=== PATIENT | female | born 1955 | race African-American/Black ===

== ENCOUNTER 2018-10-30 11:41 | Inpatient (IN) | payer OTHER ==
[2018-10-30 11:47] VITALS: BMI 34.9
--- NOTE | 2018-10-30 14:37 | HP ---
CIWA Score Nausea/Vomitin-No Nausea/No Vomiting Muscle Tremors: 3 Anxiety: 4-Mod. Anxious/Guarded Agitation: 3 Paroxysmal Sweats: No Perspiration Orientation: 1-Uncertain about Date Tacttile Disturbances: 0-None Auditory Disturbances: 1-Very Mild Visual Disturbances: 0-None Headache: 0-None Present CIWA-Ar Total Score: 12 - Admission Criteria [facility]ASAS Guidelines: Admission for Medically Managed Detox: Requires at least one of the followin. CIWA greater than 12 2. Seizures within the past 24 hours 3. Delirium tremens within the past 24 hours 4. Hallucinations within the past 24 hours 5. Acute intervention needed for co occurring medical disorder 6. Acute intervention needed for co occurring psychiatric disorder 7. Severe withdrawal that cannot be handled at a lower level of care (continued vomiting, continued diarrhea, abnormal vital signs) requiring intravenous medication and/or fluids 8. Admission ROS [facility] Chief Complaint: ETOH WITHDRAWAL SX AND COCAINE DEPENDENCE. Allergies/Adverse Reactions: Allergies Allergy/AdvReac Type Severity Reaction Status Date / Time No Known Allergies Allergy Verified 10/30/18 13:56 History of Present Illness: PATIENT PRESENTS FIRST TIME ADMISSION FOR ETOH WITHDRAWAL SX AND COCAINE DEPENDENCE. PATIENT STARTED DRINKING AT AGE 21 AND DRINKS 1 PINT OF VODKA AND 1- 2 BEERS DAILY. LAST DRINK WAS EARLY TUESDAY MORNING. PATIENT DENIES H/O SEIZURES , BLACKOUTS AND FALLS. PATIENT ALSO SNIFFS COCAINE, 30 DOLLARS A DAY, LAST TIME SHE USED COCAINE WAS 10/28/17. PATIENT'S PMH INCLUDES ASTHMA, BIPOLAR DISORDER AND ANXIETY. UDS +COCAINE AND BZO. ISTOP VERIFIED BELOW. PATIENT ALSO REQUEST TO DETOX OFF XANAX BUT REFUSED TO HAVE PROVIDER CONTACT DOCTOR FOR LETTER. PATIENT STATES SHE WILL FOLLOW UP WITH PCP UPON D/C TO DISCUSS ALTERNATIVE FOR ANXIETY. Others' Prescriptions Patient Name: Ruth Del Real Date: 1955 Address: [address] [place] [address] Sex: Female Rx Written Rx Dispensed Drug Quantity Days Supply Prescriber Name 09/27/2018 10/04/2018 alprazolam 0.25 mg tablet 60 30 Tal Curtis 09/13/2018 09/19/2018 alprazolam 0.25 mg tablet 28 14 Tal Curtis 08/10/2018 08/10/2018 alprazolam 0.25 mg tablet 60 30 KirstenTal schreiber 06/29/2018 06/30/2018 alprazolam 0.5 mg tablet 60 30 Kirsten, Tal 04/19/2018 05/11/2018 alprazolam 0.25 mg tablet 60 30 Kirsten, Tal 04/13/2018 04/14/2018 alprazolam 0.25 mg tablet 60 30 Kirsten, Tal 02/22/2018 03/16/2018 alprazolam 0.25 mg tablet 60 30 Kirsten, Tal 02/03/2018 02/03/2018 alprazolam 0.25 mg tablet 60 30 Dereje George MD 12/30/2017 01/03/2018 alprazolam 0.25 mg tablet 60 30 Kirsten Tal 11/24/2017 12/01/2017 alprazolam 0.25 mg tablet 60 30 KirstenTal MD 11/11/2017 11/16/2017 alprazolam 0.25 mg tablet 10 5 Dereje George MD Exam Limitations: No Limitations - Ebola screening Have you traveled outside of the country in the last 21 days: No Have you had contact with anyone from an Ebola affected area: No Have you been sick,other than usual withdrawal symptoms: No Do you have a fever: No - Review of Systems Constitutional: Chills, Night Sweats, Changes in sleep EENT: reports: No Symptoms Reported Respiratory: reports: Shortness of Breath (MILD SOB DUE TO ASTHMA) Cardiac: reports: No Symptoms Reported GI: reports: Poor Appetite, Poor Fluid Intake, Abdominal cramping : reports: No Symptoms Reported Musculoskeletal: reports: No Symptoms Reported Integumentary: reports: Sweating Neuro: reports: Tremors Endocrine: reports: No Symptoms Reported Hematology: reports: No Symptoms Reported Psychiatric: reports: Anxious (UNSURE OF DATE, KNOWS PLACE AND NAME.), Depressed Patient History - Patient Medical History Hx Anemia: No Hx Asthma: Yes Hx Chronic Obstructive Pulmonary Disease (COPD): No Hx Cancer: No Hx Cardiac Disorders: No Hx Congestive Heart Failure: No Hx Hypertension: No Hx Hypercholesterolemia: No Hx Pacemaker: No HX Cerebrovascular Accident: No Hx Seizures: No Hx Dementia: No Hx Diabetes: No Hx Gastrointestinal Disorders: No Hx Liver Disease: No Hx Genitourinary Disorders: No Hx Sexually Transmitted Disorders: No Hx Renal Disease (ESRD): No Hx Thyroid Disease: No Hx Human Immunodeficiency Virus (HIV): No Hx Hepatitis C: No Hx Depression: Yes Hx Suicide Attempt: No Hx Bipolar Disorder: Yes Hx Schizophrenia: No - Patient Surgical History Past Surgical History: Yes Hx Neurologic Surgery: No Hx Cataract Extraction: No Hx Cardiac Surgery: No Hx Lung Surgery: No Hx Breast Surgery: No Hx Breast Biopsy: No Hx Abdominal Surgery: No Hx Appendectomy: No Hx Cholecystectomy: No Hx Genitourinary Surgery: No Hx Section: Yes (x3) Hx Orthopedic Surgery: No Hx Hysterectomy: No Anesthesia Reaction: No - PPD History Previous Implant?: Yes Documented Results: Positive w/o proof Implanted On Prior R Admission?: No PPD to be Administered?: No - Reproductive History Patient is a Female of Child Bearing Age (11 -55 yrs old): No Patient : No - Smoking Cessation Smoking history: Current every day smoker Have you smoked in the past 12 months: Yes Aproximately how many cigarettes per day: 2 Hx Chewing Tobacco Use: No Initiated information on smoking cessation: Yes 'Breaking Loose' booklet given: 10/30/18 - Substance & Tx. History Hx Alcohol Use: Yes Hx Substance Use: Yes Substance Use Type: Alcohol, Cocaine Hx Substance Use Treatment: No - Substances Abused Cocaine Route: Inhalation Frequency: Daily Amount used: $30 Age of first use: 21 Date of Last Use: 10/28/18 Alcohol-beer/vodka Route: Oral Frequency: Daily Amount used: 1-6 pk./1 pt. Age of first use: 18 Date of Last Use: 10/29/18 Family Disease History - Family Disease History Family History: Denies Admission Physical Exam S - Vital Signs Vital Signs: Vital Signs - 24 hr 10/30/18 11:44 Temperature 95.6 F L Pulse Rate 83 Respiratory 18 Rate Blood Pressure 120/94 - Physical General Appearance: Yes: Nourished, Appropriately Dressed, Tremorous, Sweating, Anxious HEENTM: Yes: EOMI, Hearing grossly Normal, Normal ENT Inspection, Normocephalic , Normal Voice, EBEN, Pharynx Normal Respiratory: Yes: Chest Non-Tender, Lungs Clear, Normal Breath Sounds, No Respiratory Distress, No Accessory Muscle Use Neck: Yes: No masses,lesions,Nodules, Supple, Trachea in good position Breast: Yes: Breast Exam Deferred Cardiology: Yes: Regular Rhythm, Regular Rate, S1, S2 Abdominal: Yes: Normal Bowel Sounds, Non Tender, Soft Genitourinary: Yes: Within Normal Limits Back: Yes: Normal Inspection Musculoskeletal: Yes: full range of Motion, Gait Steady Extremities: Yes: Normal Range of Motion, Non-Tender, Tremors Neurological: Yes: newspaper photographer II-XII NML intact, Alert, Motor Strength 5/5, Normal Response, Depressed Affect Integumentary: Yes: Normal Color, Warm, Moist Lymphatic: Yes: Within Normal Limits - Diagnostic (1) Alcohol dependence with uncomplicated withdrawal Current Visit: Yes Status: Acute (2) Sedative hypnotic or anxiolytic dependence Current Visit: Yes Status: Chronic (3) Anxiety Current Visit: Yes Status: Suspected (4) Depressed affect Current Visit: Yes Status: Suspected (5) Asthma Current Visit: Yes Status: Chronic Qualifiers: Asthma severity: unspecified severity Asthma complication type: uncomplicated Cleared for Admission [facility] - Detox or Rehab [facility] Level of Care: Medically Managed Detox Regimen/Protocol: Valium [facility] Breath Alcohol Content Breath Alcohol Content: 0 Urine Pregancy Test - Result Urine Test Results: Negative- NO Line Present Urine Drug Screen - Results Drug Screen Negative: No Urine Drug Screen Results: BALDEMAR-Cocaine, BZO-Benzodiazepines
[2018-10-30] MEDS ORDERED: MAG HYDROX/AL HYDROX/SIMETH 30 ML UNIT-DOSE CUP PO PRN (14:44)
[2018-10-30] MEDS ORDERED: IBUPROFEN 400 MG TABLET (FP) PO PRN (14:44)
[2018-10-30] MEDS ORDERED: ACETAMINOPHEN 325 MG TABLET (FP) PO PRN (14:44)
[2018-10-30] MEDS ORDERED: LOPERAMIDE HCL 2 MG CAPSULE PO PRN (14:44)
[2018-10-30] MEDS ORDERED: MAGNESIUM CITRATE 300 ML BOTTLE PO PRN (14:44)
[2018-10-30] MEDS ORDERED: NICOTINE POLACRILEX 2 MG GUM BC PRN (14:44)
[2018-10-30] MEDS ORDERED: MENTHOL/PHENOL 1 EACH UD MM PRN (14:44)
[2018-10-30] MEDS ORDERED: guaiFENesin/D-METHORPHAN HB 10 ML UNIT-DOSE CUPS PO PRN (14:44)
[2018-10-30] MEDS ORDERED: MAGNESIUM HYDROX 2400MG/30ML ORAL SUSPENSION 30 ML CUP PO PRN (14:44)
[2018-10-30] MEDS ORDERED: P-EPHED 60MG/TRIPROLIDI 2.5MG TABLET PO PRN (14:44)
[2018-10-30] MEDS ORDERED: ALBUTEROL SO4 8 GM HFA INHALER IH PRN (14:46)
[2018-10-30] MEDS ORDERED: diazePAM 5 MG TABLET PO PRN (14:46)
[2018-10-30] MEDS ORDERED: diazePAM 5 MG TABLET PO ONE (16:30)
[2018-10-30] MEDS: THIAMINE HCL 100 MG TABLET (FP) PO SCH (22:25)
[2018-10-30] MEDS: diazePAM 5 MG TABLET PO SCH (22:25)
[2018-10-30] MEDS: MELATONIN 5 MG TABLETS PO PRN (22:26)
[2018-10-31] MEDS: diazePAM 5 MG TABLET PO SCH ×3 (06:01→22:08)
--- NOTE | 2018-10-31 10:06 | EKG ---
Test Reason : Blood Pressure : / mmHG Vent. Rate : 076 BPM Atrial Rate : 076 BPM P-R Int : 166 ms QRS Dur : 082 ms QT Int : 388 ms P-R-T Axes : 068 -14 037 degrees QTc Int : 436 ms NORMAL SINUS RHYTHM NORMAL ECG NO PREVIOUS ECGS AVAILABLE Confirmed by Luis Pond MD ([id number]) on 10/31/2018 10:06:17 AM Referred By: Confirmed By:Luis Pond MD
[2018-10-31 10:22] LABS: HEMATOCRIT 45.3 % (32.4-45.2); HEMOGLOBIN 14.5 GM/dL (10.7-15.3); MCH 31.1 pg (25.7-33.7); MCHC 32.1 g/dl (32.0-36.0); MEAN PLT VOLUME 8.2 fl (7.5-11.1); PLATELET COUNT 284 K/MM3 (134-434); RBC 4.67 M/mm3 (3.60-5.2); RDW 13.6 % (11.6-15.6); WHITE BLOOD COUNT 6.3 K/mm3 (4.0-10.0)
[2018-10-31] MEDS: PRENATAL VITAMINS W/ FOLIC ACID TABLET (FP) PO SCH (10:29)
[2018-10-31] MEDS: hydrOXYzine PAMOATE 50 MG CAPSULE (FP) PO PRN (10:30)
--- NOTE | 2018-10-31 10:44 | PN ---
S CIWA - CIWA Score Nausea/Vomitin-Mild Nausea/No Vomiting Muscle Tremors: 2 Anxiety: 2 Agitation: 2 Paroxysmal Sweats: 1-Minimal Palms Moist Orientation: 1-Uncertain about Date Tacttile Disturbances: 1-Very Mild Itch/Numbness Auditory Disturbances: 1-Very Mild Visual Disturbances: 0-None Headache: 1-Very Mild CIWA-Ar Total Score: 12 BHS Progress Note (SOAP) Subjective: tremor anxiety sweating feeling sad about unable to control alcohol drinking emotional support given Objective: 10/31/18 10:43 Vital Signs Temperature 97.9 F 10/31/18 09:27 Pulse Rate 79 10/31/18 09:27 Respiratory Rate 18 10/31/18 09:27 Blood Pressure 131/74 10/31/18 09:27 O2 Sat by Pulse Oximetry (%) Laboratory Last Values WBC 6.3 K/mm3 (4.0-10.0) 10/31/18 05:45 RBC 4.67 M/mm3 (3.60-5.2) 10/31/18 05:45 Hgb 14.5 GM/dL (10.7-15.3) 10/31/18 05:45 Hct 45.3 % (32.4-45.2) H 10/31/18 05:45 MCV 97.0 fl (80-96) H 10/31/18 05:45 MCH 31.1 pg (25.7-33.7) 10/31/18 05:45 MCHC 32.1 g/dl (32.0-36.0) 10/31/18 05:45 RDW 13.6 % (11.6-15.6) 10/31/18 05:45 Plt Count 284 K/MM3 (134-434) D 10/31/18 05:45 MPV 8.2 fl (7.5-11.1) D 10/31/18 05:45 lab noted Assessment: 10/31/18 10:44 withdrawal sx history of depression Plan: continue detox
[2018-10-31 10:49] LABS: ALBUMIN 4.2 g/dl (3.4-5.0); ALK PHOS 52 U/L (45-117); ANION GAP 7 MMOL/L (8-16); BILIRUBIN,TOTAL 0.3 mg/dL (0.2-1); BLOOD UREA NITROGEN 24 mg/dL (7-18); CALCIUM 9.1 mg/dL (8.5-10.1); CHLORIDE 107 mmol/L (98-107); CO2 25 mmol/L (21-32); CREATININE 0.7 mg/dL (0.55-1.3); GLUCOSE,RANDOM 92 mg/dL (74-106); POTASSIUM 4.4 mmol/L (3.5-5.1); SGOT/AST 17 U/L (15-37); SGPT/ALT 23 U/L (13-61); SODIUM 139 mmol/L (136-145); TOT PROT 7.8 g/dl (6.4-8.2)
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
[2018-10-31] MEDS: risperiDONE 2 MG TABLET PO SCH (22:08)
[2018-10-31] MEDS: THIAMINE HCL 100 MG TABLET (FP) PO SCH (22:08)
[2018-10-31] MEDS: MELATONIN 5 MG TABLETS PO PRN (22:08)
[2018-11-01] MEDS ORDERED: PARoxetine HCL 10 MG TABLET (FP) ONE (09:46)
[2018-11-01] MEDS: PRENATAL VITAMINS W/ FOLIC ACID TABLET (FP) PO SCH (10:31)
[2018-11-01] MEDS: PARoxetine HCL 20 MG TABLET (FP) PO SCH (10:31)
[2018-11-01] MEDS: diazePAM 5 MG TABLET PO SCH ×2 (10:32→21:35)
--- NOTE | 2018-11-01 12:39 | PN ---
S CIWA - CIWA Score Nausea/Vomitin-No Nausea/No Vomiting Muscle Tremors: 2 Anxiety: 2 Agitation: 2 Paroxysmal Sweats: 1-Minimal Palms Moist Orientation: 1-Uncertain about Date Tacttile Disturbances: 0-None Auditory Disturbances: 0-None Visual Disturbances: 0-None Headache: 2-Mild CIWA-Ar Total Score: 10 S Progress Note (SOAP) Subjective: tremor sweat anxiety no gi distress today otherwise feeling ok Objective: 11/01/18 12:38 Vital Signs Temperature 97.8 F 11/01/18 09:18 Pulse Rate 70 11/01/18 09:18 Respiratory Rate 18 11/01/18 09:18 Blood Pressure 100/60 11/01/18 09:18 O2 Sat by Pulse Oximetry (%) Laboratory Last Values WBC 6.3 K/mm3 (4.0-10.0) 10/31/18 05:45 RBC 4.67 M/mm3 (3.60-5.2) 10/31/18 05:45 Hgb 14.5 GM/dL (10.7-15.3) 10/31/18 05:45 Hct 45.3 % (32.4-45.2) H 10/31/18 05:45 MCV 97.0 fl (80-96) H 10/31/18 05:45 MCH 31.1 pg (25.7-33.7) 10/31/18 05:45 MCHC 32.1 g/dl (32.0-36.0) 10/31/18 05:45 RDW 13.6 % (11.6-15.6) 10/31/18 05:45 Plt Count 284 K/MM3 (134-434) D 10/31/18 05:45 MPV 8.2 fl (7.5-11.1) D 10/31/18 05:45 Sodium 139 mmol/L (136-145) 10/31/18 05:45 Potassium 4.4 mmol/L (3.5-5.1) 10/31/18 05:45 Chloride 107 mmol/L (98-107) 10/31/18 05:45 Carbon Dioxide 25 mmol/L (21-32) 10/31/18 05:45 Anion Gap 7 MMOL/L (8-16) L 10/31/18 05:45 BUN 24 mg/dL (7-18) H 10/31/18 05:45 Creatinine 0.7 mg/dL (0.55-1.3) 10/31/18 05:45 Creat Clearance w eGFR > 60 (>60) 10/31/18 05:45 Random Glucose 92 mg/dL (74-106) 10/31/18 05:45 Calcium 9.1 mg/dL (8.5-10.1) 10/31/18 05:45 Total Bilirubin 0.3 mg/dL (0.2-1) 10/31/18 05:45 AST 17 U/L (15-37) 10/31/18 05:45 ALT 23 U/L (13-61) 10/31/18 05:45 Alkaline Phosphatase 52 U/L (45-117) 10/31/18 05:45 Total Protein 7.8 g/dl (6.4-8.2) 10/31/18 05:45 Albumin 4.2 g/dl (3.4-5.0) 10/31/18 05:45 RPR Titer Nonreactive (NONREACTIVE) 10/31/18 05:45 lab noted Assessment: 11/01/18 12:38 withdrawal sx Plan: continue detox
[2018-11-01] MEDS: hydrOXYzine PAMOATE 50 MG CAPSULE (FP) PO PRN (21:35)
[2018-11-01] MEDS: THIAMINE HCL 100 MG TABLET (FP) PO SCH (21:35)
[2018-11-01] MEDS: risperiDONE 2 MG TABLET PO SCH (21:35)
[2018-11-01] MEDS: MELATONIN 5 MG TABLETS PO PRN (21:35)
[2018-11-02] MEDS ORDERED: PARoxetine HCL 10 MG TABLET (FP) ONE (09:07)
[2018-11-02] MEDS: PARoxetine HCL 20 MG TABLET (FP) PO SCH (09:44)
[2018-11-02] MEDS: PRENATAL VITAMINS W/ FOLIC ACID TABLET (FP) PO SCH (09:44)
[2018-11-02] MEDS: diazePAM 5 MG TABLET PO SCH ×2 (09:45→21:41)
--- NOTE | 2018-11-02 09:52 | PN ---
S Progress Note Note: Psychiatric nurse practitioner note: As per patient's request paxil 40mg daily was changed to HS. Verbal consent given.
--- NOTE | 2018-11-02 11:03 | PN ---
[facility] Progress Note (SOAP) Subjective: feeling better less tremor little sweating mild gi distress Objective: 11/02/18 11:04 Vital Signs Temperature 97.6 F 11/02/18 09:55 Pulse Rate 82 11/02/18 09:55 Respiratory Rate 20 11/02/18 09:55 Blood Pressure 113/74 11/02/18 09:55 O2 Sat by Pulse Oximetry (%) Laboratory Last Values WBC 6.3 K/mm3 (4.0-10.0) 10/31/18 05:45 RBC 4.67 M/mm3 (3.60-5.2) 10/31/18 05:45 Hgb 14.5 GM/dL (10.7-15.3) 10/31/18 05:45 Hct 45.3 % (32.4-45.2) H 10/31/18 05:45 MCV 97.0 fl (80-96) H 10/31/18 05:45 MCH 31.1 pg (25.7-33.7) 10/31/18 05:45 MCHC 32.1 g/dl (32.0-36.0) 10/31/18 05:45 RDW 13.6 % (11.6-15.6) 10/31/18 05:45 Plt Count 284 K/MM3 (134-434) D 10/31/18 05:45 MPV 8.2 fl (7.5-11.1) D 10/31/18 05:45 Sodium 139 mmol/L (136-145) 10/31/18 05:45 Potassium 4.4 mmol/L (3.5-5.1) 10/31/18 05:45 Chloride 107 mmol/L (98-107) 10/31/18 05:45 Carbon Dioxide 25 mmol/L (21-32) 10/31/18 05:45 Anion Gap 7 MMOL/L (8-16) L 10/31/18 05:45 BUN 24 mg/dL (7-18) H 10/31/18 05:45 Creatinine 0.7 mg/dL (0.55-1.3) 10/31/18 05:45 Creat Clearance w eGFR > 60 (>60) 10/31/18 05:45 Random Glucose 92 mg/dL (74-106) 10/31/18 05:45 Calcium 9.1 mg/dL (8.5-10.1) 10/31/18 05:45 Total Bilirubin 0.3 mg/dL (0.2-1) 10/31/18 05:45 AST 17 U/L (15-37) 10/31/18 05:45 ALT 23 U/L (13-61) 10/31/18 05:45 Alkaline Phosphatase 52 U/L (45-117) 10/31/18 05:45 Total Protein 7.8 g/dl (6.4-8.2) 10/31/18 05:45 Albumin 4.2 g/dl (3.4-5.0) 10/31/18 05:45 RPR Titer Nonreactive (NONREACTIVE) 10/31/18 05:45 lab noted Assessment: 11/02/18 11:04 mild withdrawal sx Plan: continue detox
[2018-11-02] MEDS: risperiDONE 2 MG TABLET PO SCH (21:41)
[2018-11-02] MEDS: THIAMINE HCL 100 MG TABLET (FP) PO SCH (21:41)
[2018-11-02] MEDS ORDERED: PARoxetine HCL 20 MG TABLET (FP) PO SCH (22:00)
[2018-11-03 09:15] VITALS: BP 130/85; PULSE 85; TEMP 96.8
[2018-11-03] MEDS ORDERED: diazePAM 5 MG TABLET PO SCH (10:00)
[2018-11-03] MEDS: PRENATAL VITAMINS W/ FOLIC ACID TABLET (FP) PO SCH (10:46)
--- NOTE | 2018-11-03 13:29 | DS ---
[facility] Detox Discharge Summary Admission Date: 10/30/18 Discharge Date: 11/03/18 - History Present History: Alcohol Dependence, Cocaine Dependence, Sedative Dependence Additional Comments: PATIENT SCHEDULED FOR DISCHARGE FROM DETOX UNIT TO DAY. PATIENT GOING TO [facility] FOR AFTERCARE. PATIENT WAS DISCHARGED FROM DETOX UNIT TO BE TAKEN OVER TO REHAB UNIT IN STABLE MEDICAL CONDITION. Pertinent Past History: Asthma, Depression, Bipolar Disorder, Anxiety, Nicotine Dependence. - Physical Exam Results Vital Signs: Vital Signs Temperature 96.8 F L 11/03/18 09:15 Pulse Rate 85 11/03/18 09:15 Respiratory Rate 20 11/03/18 09:15 Blood Pressure 130/85 11/03/18 09:15 O2 Sat by Pulse Oximetry (%) Pertinent Admission Physical Exam Findings: WITHDRAWAL SYMPTOMS. Laboratory Tests 10/31/18 10/31/18 10/31/18 05:45 05:45 05:45 WBC 6.3 RBC 4.67 Hgb 14.5 Hct 45.3 H MCV 97.0 H MCH 31.1 MCHC 32.1 RDW 13.6 Plt Count 284 D MPV 8.2 D Sodium 139 Potassium 4.4 Chloride 107 Carbon Dioxide 25 Anion Gap 7 L BUN 24 H Creatinine 0.7 Creat Clearance w eGFR > 60 Random Glucose 92 Calcium 9.1 Total Bilirubin 0.3 AST 17 ALT 23 Alkaline Phosphatase 52 Total Protein 7.8 Albumin 4.2 RPR Titer Nonreactive LABS NOTED. - Treatment Hospital Course: Detox Protocol Followed, Detoxed Safely, Responded well, Discharged Condition Good, Rehab Referral Accepted Patient has Accepted a Rehab Referral to: [facility] ([place], [place]). - Medication Discharge Medications: Ambulatory Orders Paroxetine HCl [Paxil] 40 mg PO HS 10/30/18 Risperidone [Risperdal -] 2 mg PO HS 10/30/18 Albuterol Sulfate Inhaler - [Ventolin HFA Inhaler -] 2 inh PO Q4H PRN #1 inhaler 11/02/18 - Diagnosis (1) Alcohol dependence with uncomplicated withdrawal Status: Acute (2) Asthma Status: Chronic Qualifiers: Asthma severity: mild Asthma persistence: intermittent Asthma complication type: uncomplicated Qualified Code(s): J45.20 - Mild intermittent asthma, uncomplicated (3) Nicotine dependence Status: Chronic Qualifiers: Nicotine product type: cigarettes Substance use status: uncomplicated Qualified Code(s): F17.210 - Nicotine dependence, cigarettes, uncomplicated (4) Sedative hypnotic or anxiolytic dependence Status: Acute (5) Cocaine dependence Status: Chronic Qualifiers: Substance use status: uncomplicated Qualified Code(s): F14.20 - Cocaine dependence, uncomplicated (6) MDD (major depressive disorder) Status: Chronic Qualifiers: Major depression recurrence: unspecified whether recurrent Active/ Remission status: remission status unspecified Qualified Code(s): F32.9 - Major depressive disorder, single episode, unspecified (7) Substance induced mood disorder Status: Chronic (8) Anxiety Status: Suspected - AMA Did Patient Leave Against Medical Advice: No
== END 2018-11-03 11:41 | disposition other institution (70) | DRG 774 ==
LOC: YASAS 11:41 → Y3N 16:01 → MERGE 16:01 → Y3N 11-01 16:01
PROC: HZ2ZZZZ Detoxification Services for Substance Abuse Treatment (ICD-10-PCS; principal; 2018-10-30)
DX: F10.230 Alcohol dependence with withdrawal, uncomplicated (principal); F13.20 Sedative, hypnotic or anxiolytic dependence, uncomplicated; F14.20 Cocaine dependence, uncomplicated; F17.210 Nicotine dependence, cigarettes, uncomplicated; F32.9 Major depressive disorder, single episode, unspecified; F19.24 Other psychoactive substance dependence with psychoactive substance-induced mood disorder; F41.9 Anxiety disorder, unspecified; J45.20 Mild intermittent asthma, uncomplicated
CPT/HCPCS: 36415; 71046-TC-FY; 80053; 85027; 86593; 93005; 93010

== ENCOUNTER 2018-11-03 11:41 | Inpatient (IN) | payer OTHER ==
[2018-11-03] MEDS ORDERED: ACETAMINOPHEN 325 MG TABLET (FP) PO PRN (11:51)
[2018-11-03] MEDS ORDERED: MAGNESIUM CITRATE 300 ML BOTTLE PO PRN (11:51)
[2018-11-03] MEDS ORDERED: MENTHOL/PHENOL 1 EACH UD MM PRN (11:51)
[2018-11-03] MEDS ORDERED: NICOTINE POLACRILEX 2 MG GUM BUC PRN (11:51)
[2018-11-03] MEDS ORDERED: MAGNESIUM HYDROX 2400MG/30ML ORAL SUSPENSION 30 ML CUP PO PRN (11:51)
[2018-11-03] MEDS ORDERED: MAG HYDROX/AL HYDROX/SIMETH 30 ML UNIT-DOSE CUP PO PRN (11:51)
[2018-11-03] MEDS ORDERED: LOPERAMIDE HCL 2 MG CAPSULE PO PRN (11:51)
--- NOTE | 2018-11-03 13:20 | PN ---
S Progress Note Note: Called by nursing staff to order medications for newly admitted patient from detox. Medication reconciliation done. Paxil 40 mg po HS and Risperdal 3 mg po HS ordered
--- NOTE | 2018-11-03 13:36 | HP ---
[facility] Rehab Assess/Revision - Admission History Admitted to Rehab from: [place] [facility] Date of Admission to Rehab: 11/03/2018 - Vital signs Vital Signs: Vital Signs Period Temp Pulse Resp BP Sys/Jimenez Pulse Ox Last 24 Hr 97.8 F 87 18 125/86 - Findings Detox History & Physical reviewed: Yes Concur with findings: Yes Comments/Additional Findings: PATIENT'S MEDICAL / MEDICATION HISTORY REVIEWED PRIOR TO DISCHARGE FROM DETOX UNIT. PATIENT WAS DISCHARGED FROM DETOX UNIT TO BE TAKEN TO REHAB UNIT IN STABLE MEDICAL CONDITION. Inpatient Rehab Admission - Initial Determination Are CD services needed?: Yes Free of communicable disease: Yes Not in need of hospitalization: Yes - Rehab Admission Criteria Comorbidities: Yes Patient is meeting Inpatient Rehab admission criteria:: Yes
[2018-11-03] MEDS: risperiDONE 1 MG TABLET (FP) PO SCH ×2 (15:25→22:05)
[2018-11-03] MEDS: IBUPROFEN 400 MG TABLET (FP) PO PRN (21:30)
[2018-11-03] MEDS: PARoxetine HCL 20 MG TABLET (FP) PO SCH (22:05)
[2018-11-03] MEDS: MELATONIN 5 MG TABLETS PO PRN (22:06)
[2018-11-03] MEDS: THIAMINE HCL 100 MG TABLET (FP) PO SCH (22:06)
[2018-11-04] MEDS: PRENATAL VITAMINS W/ FOLIC ACID TABLET (FP) PO SCH (09:59)
[2018-11-04] MEDS ORDERED: PARoxetine HCL 10 MG TABLET (FP) ONE (19:44)
[2018-11-04] MEDS: risperiDONE 1 MG TABLET (FP) PO SCH (21:23)
[2018-11-04] MEDS: THIAMINE HCL 100 MG TABLET (FP) PO SCH (21:23)
[2018-11-04] MEDS: MELATONIN 5 MG TABLETS PO PRN (21:24)
[2018-11-04] MEDS: PARoxetine HCL 20 MG TABLET (FP) PO SCH (21:34)
[2018-11-05] MEDS: PRENATAL VITAMINS W/ FOLIC ACID TABLET (FP) PO SCH (09:43)
[2018-11-05] MEDS: IBUPROFEN 400 MG TABLET (FP) PO PRN (19:21)
[2018-11-05] MEDS: risperiDONE 1 MG TABLET (FP) PO SCH (21:12)
[2018-11-05] MEDS: PARoxetine HCL 20 MG TABLET (FP) PO SCH (21:12)
[2018-11-05] MEDS: THIAMINE HCL 100 MG TABLET (FP) PO SCH (21:12)
[2018-11-05] MEDS: MELATONIN 5 MG TABLETS PO PRN (21:13)
[2018-11-06] MEDS: PRENATAL VITAMINS W/ FOLIC ACID TABLET (FP) PO SCH (09:59)
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
[2018-11-06] MEDS ORDERED: PARoxetine HCL 20 MG TABLET (FP) PO SCH (10:37)
[2018-11-06] MEDS: THIAMINE HCL 100 MG TABLET (FP) PO SCH (21:32)
[2018-11-06] MEDS ORDERED: PARoxetine HCL 10 MG TABLET (FP) ONE (21:33)
[2018-11-06] MEDS ORDERED: PARoxetine HCL 20 MG TABLET (FP) ONE (21:33)
[2018-11-06] MEDS: PAROXETINE HCL PO SCH (21:34)
[2018-11-06] MEDS: IBUPROFEN 400 MG TABLET (FP) PO PRN (21:34)
[2018-11-06] MEDS: risperiDONE 1 MG TABLET (FP) PO SCH (21:34)
[2018-11-07] MEDS: ALBUTEROL SO4 8 GM HFA INHALER IH PRN (08:28)
[2018-11-07] MEDS: PRENATAL VITAMINS W/ FOLIC ACID TABLET (FP) PO SCH (09:47)
[2018-11-07] MEDS: P-EPHED 60MG/TRIPROLIDI 2.5MG TABLET PO PRN ×2 (09:49→18:01)
--- NOTE | 2018-11-07 11:30 | PN ---
S Progress Note Note: PATIENT SEEN FOR C/O VAGINAL DISCHARGE X 1-2 DAYS. PATIENT DENIES VAGINAL ITCHING, BURNING UPON URINATION AND PELVIC DISCOMFORT. Vital Signs Temperature 97.7 F 11/07/18 09:45 Pulse Rate 101 H 11/07/18 09:45 Respiratory Rate 18 11/07/18 09:45 Blood Pressure 120/87 11/07/18 09:45 O2 Sat by Pulse Oximetry (%) PE: ALERT AND ORIENTED X 3 SKIN WARM AND DRY GI/ SOFT, NT, ND, NEG PELVIC TENDERNESS EXT FULL ROM, AMB AD SUSAN A/P: VAGINAL DISCHARGE UA AND URINE C/S ORDERED ENCOURAGE FLUIDS PERINEAL HYGIENE REVIEWED WITH PATIENT FOLLOW UP LABS WHEN AVAILABLE CONTINUE TO MONITOR
[2018-11-07 12:29] LABS: URINE APPEARANCE SLCLOUDY; URINE BILIRUBIN NEGATIVE (<2.0 mg/dL); URINE COLOR YELLOW; URINE GLUCOSE (UA) NEGATIVE (NEGATIVE); URINE KETONE NEGATIVE (NEGATIVE); URINE LEUK ESTERASE 1+ (NEGATIVE); URINE NITRITE NEGATIVE (NEGATIVE); URINE PROTEIN NEGATIVE (NEGATIVE); URINE UROBILINOGEN NEGATIVE mg/dL (0.2-1.0)
[2018-11-07 12:55] LABS: EPI CELLS RARE /HPF (FEW); URINE MUCUS RARE
[2018-11-07] MEDS: IBUPROFEN 400 MG TABLET (FP) PO PRN ×2 (14:56→21:13)
[2018-11-07] MEDS: guaiFENesin/D-METHORPHAN HB 10 ML UNIT-DOSE CUPS PO PRN ×2 (14:56→21:14)
[2018-11-07] MEDS ORDERED: PARoxetine HCL 10 MG TABLET (FP) ONE (19:32)
[2018-11-07] MEDS ORDERED: PARoxetine HCL 20 MG TABLET (FP) ONE (19:32)
[2018-11-07] MEDS: THIAMINE HCL 100 MG TABLET (FP) PO SCH (21:10)
[2018-11-07] MEDS: PAROXETINE HCL PO SCH (21:10)
[2018-11-07] MEDS: risperiDONE 1 MG TABLET (FP) PO SCH (21:11)
[2018-11-07] MEDS: MELATONIN 5 MG TABLETS PO PRN (21:12)
[2018-11-08] MEDS: guaiFENesin/D-METHORPHAN HB 10 ML UNIT-DOSE CUPS PO PRN ×2 (06:32→21:44)
[2018-11-08] MEDS: P-EPHED 60MG/TRIPROLIDI 2.5MG TABLET PO PRN ×2 (06:32→21:44)
[2018-11-08] MEDS: ALBUTEROL SO4 8 GM HFA INHALER IH PRN (09:06)
[2018-11-08] MEDS: PRENATAL VITAMINS W/ FOLIC ACID TABLET (FP) PO SCH (09:07)
--- NOTE | 2018-11-08 11:02 | PN ---
[facility] Progress Note Note: Vital Signs - 24 hr 11/08/18 11/08/18 00:30 07:06 Temperature 97.3 F L Pulse Rate 82 Respiratory 18 18 Rate Blood Pressure 108/76 Laboratory Tests 11/07/18 11:15 Urine Color Yellow Urine Appearance Slcloudy Urine pH 7.0 Ur Specific [place] 1.019 Urine Protein Negative Urine Glucose (UA) Negative Urine Ketones Negative Urine Blood Negative Urine Nitrite Negative Urine Bilirubin Negative Urine Urobilinogen Negative Ur Leukocyte Esterase 1+ H Urine WBC (Auto) 49 Urine RBC (Auto) 2 Ur Epithelial Cells Rare Urine Mucus Rare Microbiology 11/07/18 11:15 Urine - Urine Clean Catch Urine Culture - Final NO GROWTH OBTAINED PLAN:INCREASE PO FLUIDS DO NOT WASH VAGINAL AREA WITH SOAP
[2018-11-08] MEDS ORDERED: COLLOIDAL OATMEAL 1 BAR EACH TP PRN (11:03)
[2018-11-08] MEDS ORDERED: PARoxetine HCL 10 MG TABLET (FP) ONE (19:30)
[2018-11-08] MEDS ORDERED: PARoxetine HCL 20 MG TABLET (FP) ONE (19:30)
[2018-11-08] MEDS: PAROXETINE HCL PO SCH (21:41)
[2018-11-08] MEDS: THIAMINE HCL 100 MG TABLET (FP) PO SCH (21:41)
[2018-11-08] MEDS: risperiDONE 1 MG TABLET (FP) PO SCH (21:42)
[2018-11-08] MEDS: IBUPROFEN 400 MG TABLET (FP) PO PRN (21:44)
[2018-11-08] MEDS ORDERED: PT OWN MED DRAWER 7, Y5N ONE ×2 (21:46→23:27)
[2018-11-09] MEDS: guaiFENesin/D-METHORPHAN HB 10 ML UNIT-DOSE CUPS PO PRN ×2 (07:19→21:23)
[2018-11-09] MEDS: P-EPHED 60MG/TRIPROLIDI 2.5MG TABLET PO PRN ×2 (07:19→21:21)
[2018-11-09] MEDS: ALBUTEROL SO4 8 GM HFA INHALER IH PRN (07:19)
[2018-11-09] MEDS: PRENATAL VITAMINS W/ FOLIC ACID TABLET (FP) PO SCH (09:09)
--- NOTE | 2018-11-09 10:17 | PN ---
[facility] Progress Note Note: PATIENT SEEN FOR FOLLOW UP UA, URINE CULTURE AND VAGINAL DISCHARGE. PATIENT CONTINUES TO C/O FOUL SMELLING, WHITE VAGINAL DISCHARGE. PATIENT DENIES RECENT UNPROTECTED SEXUAL ACTIVITY AND FEVER. Laboratory Tests 11/07/18 11:15 Urine Color Yellow Urine Appearance Slcloudy Urine pH 7.0 Ur Specific [place] 1.019 Urine Protein Negative Urine Glucose (UA) Negative Urine Ketones Negative Urine Blood Negative Urine Nitrite Negative Urine Bilirubin Negative Urine Urobilinogen Negative Ur Leukocyte Esterase 1+ H Urine WBC (Auto) 49 Urine RBC (Auto) 2 Ur Epithelial Cells Rare Urine Mucus Rare Microbiology 11/07/18 11:15 Urine - Urine Clean Catch Urine Culture - Final NO GROWTH OBTAINED Vital Signs Temperature 97.4 F L 11/09/18 06:40 Pulse Rate 89 11/09/18 06:40 Respiratory Rate 18 11/09/18 06:40 Blood Pressure 115/81 11/09/18 06:40 O2 Sat by Pulse Oximetry (%) PE: ALERT AND ORIENTED X 3 SKIN WARM AND DRY GI SOFT, BS+ NT, ND NEG PELVIC TENDERNESS, NEG CVAT EXT FULL ROM, AMB AD SUSAN A/P BV LABS APPRECIATED SX LIKELY RELATED TO VAGINOSIS WILL START FLAGYL 500MG TID X 7 DAYS CONTINUE TO MONITOR CLINICALLY
[2018-11-09] MEDS ORDERED: PARoxetine HCL 10 MG TABLET (FP) ONE (19:28)
[2018-11-09] MEDS ORDERED: PARoxetine HCL 20 MG TABLET (FP) ONE (19:28)
[2018-11-09] MEDS: THIAMINE HCL 100 MG TABLET (FP) PO SCH (21:19)
[2018-11-09] MEDS: PAROXETINE HCL PO SCH (21:19)
[2018-11-09] MEDS: risperiDONE 1 MG TABLET (FP) PO SCH (21:20)
[2018-11-09] MEDS: MELATONIN 5 MG TABLETS PO PRN (21:21)
[2018-11-10] MEDS: IBUPROFEN 400 MG TABLET (FP) PO PRN ×2 (06:36→18:16)
[2018-11-10] MEDS: P-EPHED 60MG/TRIPROLIDI 2.5MG TABLET PO PRN (06:36)
[2018-11-10] MEDS: guaiFENesin/D-METHORPHAN HB 10 ML UNIT-DOSE CUPS PO PRN ×2 (06:36→21:14)
[2018-11-10] MEDS: PRENATAL VITAMINS W/ FOLIC ACID TABLET (FP) PO SCH (10:12)
[2018-11-10] MEDS: metroNIDAZOLE 250 MG TABLET PO SCH ×2 (14:26→21:10)
[2018-11-10] MEDS ORDERED: PARoxetine HCL 20 MG TABLET (FP) ONE (20:03)
[2018-11-10] MEDS ORDERED: PARoxetine HCL 10 MG TABLET (FP) ONE (20:03)
[2018-11-10] MEDS: PAROXETINE HCL PO SCH (21:10)
[2018-11-10] MEDS: risperiDONE 1 MG TABLET (FP) PO SCH (21:10)
[2018-11-10] MEDS: THIAMINE HCL 100 MG TABLET (FP) PO SCH (21:11)
[2018-11-11] MEDS: IBUPROFEN 400 MG TABLET (FP) PO PRN ×3 (04:11→17:01)
[2018-11-11] MEDS: P-EPHED 60MG/TRIPROLIDI 2.5MG TABLET PO PRN ×2 (06:36→21:35)
[2018-11-11] MEDS: guaiFENesin/D-METHORPHAN HB 10 ML UNIT-DOSE CUPS PO PRN (06:37)
[2018-11-11] MEDS: metroNIDAZOLE 250 MG TABLET PO SCH ×3 (07:09→21:36)
[2018-11-11] MEDS: PRENATAL VITAMINS W/ FOLIC ACID TABLET (FP) PO SCH (09:59)
[2018-11-11] MEDS: ALBUTEROL SO4 8 GM HFA INHALER IH PRN (10:00)
[2018-11-11] MEDS ORDERED: PARoxetine HCL 10 MG TABLET (FP) ONE (19:40)
[2018-11-11] MEDS ORDERED: PARoxetine HCL 20 MG TABLET (FP) ONE (19:40)
[2018-11-11] MEDS: THIAMINE HCL 100 MG TABLET (FP) PO SCH (21:32)
[2018-11-11] MEDS: PAROXETINE HCL PO SCH (21:33)
[2018-11-11] MEDS: risperiDONE 1 MG TABLET (FP) PO SCH (21:33)
[2018-11-12] MEDS: IBUPROFEN 400 MG TABLET (FP) PO PRN ×3 (04:11→19:47)
[2018-11-12] MEDS: guaiFENesin/D-METHORPHAN HB 10 ML UNIT-DOSE CUPS PO PRN (06:48)
[2018-11-12] MEDS: P-EPHED 60MG/TRIPROLIDI 2.5MG TABLET PO PRN (06:48)
[2018-11-12] MEDS: metroNIDAZOLE 250 MG TABLET PO SCH ×3 (07:23→21:42)
[2018-11-12] MEDS: PRENATAL VITAMINS W/ FOLIC ACID TABLET (FP) PO SCH (10:06)
[2018-11-12] MEDS: ALBUTEROL SO4 8 GM HFA INHALER IH PRN (10:07)
[2018-11-12] MEDS ORDERED: PARoxetine HCL 20 MG TABLET (FP) ONE (19:33)
[2018-11-12] MEDS ORDERED: PARoxetine HCL 10 MG TABLET (FP) ONE (19:33)
[2018-11-12] MEDS: PAROXETINE HCL PO SCH (21:40)
[2018-11-12] MEDS: risperiDONE 1 MG TABLET (FP) PO SCH (21:40)
[2018-11-12] MEDS: THIAMINE HCL 100 MG TABLET (FP) PO SCH (21:40)
[2018-11-13] MEDS: IBUPROFEN 400 MG TABLET (FP) PO PRN ×2 (04:48→11:09)
[2018-11-13] MEDS ORDERED: PT OWN MED DRAWER 7, Y5N ONE (05:18)
[2018-11-13] MEDS: metroNIDAZOLE 250 MG TABLET PO SCH ×3 (06:10→21:11)
[2018-11-13] MEDS: P-EPHED 60MG/TRIPROLIDI 2.5MG TABLET PO PRN ×3 (06:11→21:14)
[2018-11-13] MEDS: PRENATAL VITAMINS W/ FOLIC ACID TABLET (FP) PO SCH (09:57)
[2018-11-13] MEDS: guaiFENesin/D-METHORPHAN HB 10 ML UNIT-DOSE CUPS PO PRN ×2 (13:56→21:13)
[2018-11-13] MEDS ORDERED: PARoxetine HCL 10 MG TABLET (FP) ONE (19:33)
[2018-11-13] MEDS ORDERED: PARoxetine HCL 20 MG TABLET (FP) ONE (19:33)
[2018-11-13] MEDS: THIAMINE HCL 100 MG TABLET (FP) PO SCH (21:11)
[2018-11-13] MEDS: risperiDONE 1 MG TABLET (FP) PO SCH (21:11)
[2018-11-13] MEDS: PAROXETINE HCL PO SCH (21:12)
[2018-11-14] MEDS: IBUPROFEN 400 MG TABLET (FP) PO PRN ×3 (02:30→20:57)
[2018-11-14] MEDS: metroNIDAZOLE 250 MG TABLET PO SCH ×3 (06:16→21:00)
[2018-11-14] MEDS: guaiFENesin/D-METHORPHAN HB 10 ML UNIT-DOSE CUPS PO PRN (06:17)
[2018-11-14] MEDS: PRENATAL VITAMINS W/ FOLIC ACID TABLET (FP) PO SCH (09:00)
[2018-11-14] MEDS ORDERED: PARoxetine HCL 10 MG TABLET (FP) ONE (19:42)
[2018-11-14] MEDS ORDERED: PARoxetine HCL 20 MG TABLET (FP) ONE (19:42)
[2018-11-14] MEDS: MELATONIN 5 MG TABLETS PO PRN (20:59)
[2018-11-14] MEDS: risperiDONE 1 MG TABLET (FP) PO SCH (21:00)
[2018-11-14] MEDS: PAROXETINE HCL PO SCH (21:00)
[2018-11-14] MEDS: THIAMINE HCL 100 MG TABLET (FP) PO SCH (21:00)
[2018-11-15] MEDS ORDERED: PT OWN MED DRAWER 7, Y5N ONE (06:18)
[2018-11-15] MEDS: P-EPHED 60MG/TRIPROLIDI 2.5MG TABLET PO PRN ×2 (06:21→21:04)
[2018-11-15] MEDS: metroNIDAZOLE 250 MG TABLET PO SCH ×4 (06:21→21:05)
[2018-11-15] MEDS: IBUPROFEN 400 MG TABLET (FP) PO PRN ×2 (06:22→15:05)
[2018-11-15] MEDS: PRENATAL VITAMINS W/ FOLIC ACID TABLET (FP) PO SCH (09:46)
[2018-11-15] MEDS ORDERED: PARoxetine HCL 20 MG TABLET (FP) ONE (19:25)
[2018-11-15] MEDS ORDERED: PARoxetine HCL 10 MG TABLET (FP) ONE (19:25)
[2018-11-15] MEDS: THIAMINE HCL 100 MG TABLET (FP) PO SCH (21:03)
[2018-11-15] MEDS: MELATONIN 5 MG TABLETS PO PRN (21:03)
[2018-11-15] MEDS: PAROXETINE HCL PO SCH (21:03)
[2018-11-15] MEDS: risperiDONE 1 MG TABLET (FP) PO SCH (21:03)
[2018-11-16] MEDS: P-EPHED 60MG/TRIPROLIDI 2.5MG TABLET PO PRN (06:26)
[2018-11-16] MEDS: metroNIDAZOLE 250 MG TABLET PO SCH ×3 (06:26→21:16)
[2018-11-16] MEDS: IBUPROFEN 400 MG TABLET (FP) PO PRN ×2 (06:26→13:50)
[2018-11-16] MEDS: PRENATAL VITAMINS W/ FOLIC ACID TABLET (FP) PO SCH (09:48)
--- NOTE | 2018-11-16 15:32 | PN ---
[facility] Progress Note Note: PATIENT IS SCHEDULED FOR DISCHARGE ON 11/17/18. PATIENT STATES REHAB PROGRAM HELPED HER ACHIEVE ALL HER GOALS. PATIENT REMAINS MEDICALLY STABLE AT THIS TIME AND DENIES SI/HI. PATIENT HAS PCP, DR. LEON, AND ENCOURAGED TO FOLLOW UP WITH MD WITHIN ONE WEEK OF DISCHARGE. PATIENT TO CONTINUE OUTPATIENT TREATMENT AT [facility] AND ENCOURAGED TO CONTINUE TREATMENT AND GROUP MEETINGS TO PREVENT RELAPSE. LAST ALBUTEROL PRESCRIPTION SENT 11/01/18 TO PREFERRED PHARMACY AND PATIENT INSTRUCTED TO MATERIAL SPECIALIST MEDICATION ONCE DISCHARGE. Vital Signs Temperature 97.7 F 11/16/18 06:47 Pulse Rate 81 11/16/18 06:47 Respiratory Rate 18 11/16/18 06:47 Blood Pressure 121/80 11/16/18 06:47 O2 Sat by Pulse Oximetry (%)
[2018-11-16] MEDS ORDERED: PARoxetine HCL 10 MG TABLET (FP) ONE (19:47)
[2018-11-16] MEDS ORDERED: PARoxetine HCL 20 MG TABLET (FP) ONE (19:47)
[2018-11-16] MEDS: THIAMINE HCL 100 MG TABLET (FP) PO SCH (21:15)
[2018-11-16] MEDS: PAROXETINE HCL PO SCH (21:15)
[2018-11-16] MEDS: risperiDONE 1 MG TABLET (FP) PO SCH (21:15)
[2018-11-16] MEDS ORDERED: PT OWN MED DRAWER 7, Y5N ONE (21:52)
[2018-11-17] MEDS: IBUPROFEN 400 MG TABLET (FP) PO PRN (06:39)
[2018-11-17 07:04] VITALS: BP 128/85; PULSE 90; TEMP 97.6
[2018-11-17] MEDS: PRENATAL VITAMINS W/ FOLIC ACID TABLET (FP) PO SCH (09:07)
== END 2018-11-17 09:24 | disposition home or self-care (01) | DRG 772 ==
LOC: YASAS 11:41 → Y3E 11:42
PROVIDERS: ADMIT Psychiatry & Neurology Psychiatry; ATTEND Psychiatry & Neurology Psychiatry
PROC: HZ42ZZZ Group Counseling for Substance Abuse Treatment, Cognitive-Behavioral (ICD-10-PCS; principal; 2018-11-03)
DX: F10.20 Alcohol dependence, uncomplicated (principal); F13.20 Sedative, hypnotic or anxiolytic dependence, uncomplicated; F14.20 Cocaine dependence, uncomplicated; F17.210 Nicotine dependence, cigarettes, uncomplicated; F19.24 Other psychoactive substance dependence with psychoactive substance-induced mood disorder; F43.10 Post-traumatic stress disorder, unspecified; J45.20 Mild intermittent asthma, uncomplicated; N76.0 Acute vaginitis
CPT/HCPCS: 81003; 81015; 87086; J2794

== ENCOUNTER 2019-04-25 13:43 | Emergency (ER) | payer OTHER ==
--- NOTE | 2019-04-25 13:51 | PDOC ---
History of Present Illness - General Chief Complaint: Urinary Problem Stated Complaint: BURNING ON URINATION BACK PAIN Time Seen by Provider: 04/25/19 13:50 - History of Present Illness Initial Comments: 04/25/19 14:18 Chief complaint: Burning on urination History of present illness: Burning with urination since this morning. No fever , discolored, foul-smelling, or bloody urine. Review of systems: No abdominal pain, nausea, vomiting, diarrhea, vaginal bleeding or discharge, vaginal irritation, itching, or lesions. Past medical history: Healthy except for depression, maintained on antidepressant medication. No diabetes, cardiovascular disease, or GI disease. No known gynecological disease. Social/family history reviewed and noncontributory Physical exam: Alert and oriented moderately obese no acute distress cheerful and cooperative Afebrile, vital signs normal HEENT clear Neck supple without bruit mass or nausea Chest clear CV regular without murmur rub or gallop Abdomen nondistended, bowel sounds normal, soft without masses tenderness organomegaly No CVAT Impression: Possible UTI, other possibilities include vaginitis, either monilial or atrophic, less likely STD Plan: UA and C&S. Further medical management depending on results. Past History - Past Medical History Allergies/Adverse Reactions: Allergies Allergy/AdvReac Type Severity Reaction Status Date / Time No Known Allergies Allergy Verified 04/25/19 13:44 Home Medications: Ambulatory Orders Cephalexin [Keflex] 250 mg PO TID #10 capsule 04/25/19 Paroxetine HCl [Paxil] 1 tab PO HS 04/25/19 Phenazopyridine HCl [Pyridium] 100 mg PO TID #10 tablet 04/25/19 Risperidone [Risperdal] 2 mg PO HS 04/25/19 Anemia: No Asthma: Yes Cancer: No Cardiac Disorders: No CVA: No COPD: No CHF: No Dementia: No Diabetes: No GI Disorders: No Disorders: No HTN: No Hypercholesterolemia: No Kidney Stones: No Liver Disease: No Seizures: No Thyroid Disease: No - Surgical History Abdominal Surgery: No Appendectomy: No Cardiac Surgery: No Cholecystectomy: No Lung Surgery: No Neurologic Surgery: No Orthopedic Surgery: No - Reproductive History PID: No - Suicide/Smoking/Psychosocial Hx Smoking Status: Yes Smoking History: Current every day smoker Have you smoked in the past 12 months: Yes Number of Cigarettes Smoked Daily: 2 'Breaking Loose' booklet given: 10/30/18 Hx Alcohol Use: Yes (drinking since 21 yo,vodka 1 point daily,a few beers) Drug/Substance Use Hx: Yes (cocaine since 21 yo ,spending $30 daily,Xanax since 21 yo) Substance Use Type: Alcohol, Cocaine, Tranquilizers Hx Substance Use Treatment: Yes (this is her first inpatient rehab) Abd/GI Specific PMHX - Complaint Specific PMHX Hepatitis: No Pancreatitis: No Medical Decision Making - Medical Decision Making 04/25/19 15:22 Urinalysis is equivocal. Empiric antibiotics until culture results. SMOKING PIPE [employer]ER referral. Patient in no distress at discharge to follow-up as directed *DC/Admit/Observation/Transfer Diagnosis at time of Disposition: UTI (urinary tract infection) Qualifiers: Urinary tract infection type: acute cystitis Hematuria presence: without hematuria Qualified Code(s): N30.00 - Acute cystitis without hematuria - Discharge Dispostion Disposition: HOME Condition at time of disposition: Stable Decision to Admit order: No - Prescriptions Prescriptions: Cephalexin [Keflex] 250 mg PO TID #10 capsule Phenazopyridine HCl [Pyridium] 100 mg PO TID #10 tablet - Referrals Referrals: Eyad Osman MD [Primary Care Provider] - 2 Days - Patient Instructions Printed Discharge Instructions: DI for Urinary Tract Infection (UTI) Additional Instructions: Urine culture results will be ready in 24-48 hours. Check these results, discontinue medication if negative, otherwise finish antibiotics as prescribed If symptoms persist, see wedding coordinator for complete SMO[employer] PIPE [employer]ER exam. It is possible that local conditions in the vaginal area could be causing symptoms similar to a UTI. - Post Discharge Activity
[2019-04-25 13:53] VITALS: BP 131/81; PULSE 88; TEMP 98.4; BMI 31.6
[2019-04-25] MEDS ORDERED: PHENAZOPYRIDINE HCL 100 MG TABLET (FP) PO ONE (14:21)
[2019-04-25] MEDS ORDERED: PHENAZOPYRIDINE HCL 100 MG TABLET (FP) ONE (14:27)
[2019-04-25 15:26] LABS: EPITHELIAL CELLS 1+ /hpf
== END 2019-04-25 15:24 | disposition home or self-care (01) ==
LOC: FER 13:43
DX: N30.00 Acute cystitis without hematuria (principal); F17.210 Nicotine dependence, cigarettes, uncomplicated; J45.909 Unspecified asthma, uncomplicated
CPT/HCPCS: 81003; 81015; 87086; 87186; 99282-25

== ENCOUNTER → 2019-06-14 | Day surgery (SDC) | payer OTHER ==
--- NOTE | 2019-06-18 09:32 | PATH ---
Surgical Pathology Report Patient Name: MYNOR MARQUES [facility]. Rec. #: [id number] /Age/Gender: 1955 (Age: 63) / F Account: [id number] Location: [facility] Taken: 06/14/2019 Received: 06/14/2019 Reported: 06/18/2019 Physicians: Abel Devlin M.D. Specimen(s) Received A: LEFT BREST SPECIMEN SITE #1 - WITH CALCIFICATIONS B: LEFT BREAST SPECIMEN SITE # 1 - WITHOUT CALCIFICATIONS C: LEFT BREAST SPECIMEN SITE # 2 - WITH CALCIFICATIONS D: LEFT BREST SPECIMEN SITE # 2 - WITHOUT CALCIFICATION Clinical History Calcifications Final Diagnosis A. LEFT BREAST SPECIMEN SITE 1- WITH CALCIFICATIONS, STEREOTACTIC BIOPSY: DUCTAL CARCINOMA IN SITU (DCIS), INTERMEDIATE NUCLEAR GRADE, MICROPAPILLARY, CRIBRIFORM, AND SOLID PATTERNS, WITH ASSOCIATE MICROCALCIFICATIONS. B. LEFT BREAST SPECIMEN SITE 1- WITHOUT CALCIFICATIONS, STEREOTACTIC BIOPSY: DUCTAL CARCINOMA IN SITU (DCIS), INTERMEDIATE NUCLEAR GRADE, MICROPAPILLARY AND CRIBRIFORM, PATTERNS, WITH ASSOCIATE MICROCALCIFICATIONS. C. LEFT BREAST SPECIMEN SITE 2- WITH CALCIFICATIONS, STEREOTACTIC BIOPSY: DUCTAL CARCINOMA IN SITU (DCIS), INTERMEDIATE NUCLEAR GRADE, MICROPAPILLARY AND CRIBRIFORM PATTERNS, WITH ASSOCIATE NECROSIS AND MICROCALCIFICATIONS. D. LEFT BREAST SPECIMEN SITE 2- WITHOUT CALCIFICATIONS, STEREOTACTIC BIOPSY: DUCTAL CARCINOMA IN SITU (DCIS), INTERMEDIATE NUCLEAR GRADE, WITH MICROPAPILLARY AND CRIBRIFORM PATTERNS. Results of Estrogen Receptor (ER) and Progesterone Receptor (ME) studies performed on block "C2" at Health system are as follows: ER (clone [id number] mouse monoclonal antibody by Leica): 95% nuclear staining with strong intensity (Positive). ME (clone16 mouse monoclonal antibody by Leica): ~2% nuclear staining with strong intensity (Low positive). Positive and negative controls (internal if applicable) show appropriate results. Formalin fixation and cold ischemic times are within current ASCO/CAP recommendations for ER, ME and Her2 testing. Comment: Immunohistochemical stain E-Cadherin (A1) performed and interpreted at Health system show membranous expression in the carcinoma in situ, supports a ductal phenotype. Electronically Signed Cely George M.D. Addendum Reported: 06/19/2019 Addendum Diagnosis This case was discussed with Dr. Osman on June 19, 2019. Cely George M.D. Gross Description A. Received in formalin, labeled "left breast site 1- with calcifications" are multiple cores of yellow-booth tissue ranging from 1.3-2.6 cm in length with a diameter of up to 0.3 cm. Entirely submitted in two cassettes. B. Received in formalin, labeled "left breast site 1- without calcifications" are multiple cores of light booth and yellow-booth tissue measuring 1.5 cm and 2.3 cm in length with a diameter of up to 0.3 cm. Entirely submitted in one cassette. C. Received in formalin, labeled "left breast site 2- with calcifications" are multiple cores of light booth and yellow-booth tissue ranging from 1.3-2.6 cm in length with a diameter of up to 0.3 cm. Entirely submitted in two cassettes. D. Received in formalin, labeled "left breast site 2- without calcifications " are multiple cores of light booth and yellow-booth tissue measuring 1.5 cm and 2.3 cm in length with a diameter of up to 0.3 cm. Entirely submitted in one cassette. Time to formalin fixation: 5 minutes Total formalin fixation time: Approximately 9 hours
== END | disposition home or self-care (01) ==
LOC: FMAMMOTONE 09:21
PROVIDERS: ATTEND Family Medicine Geriatric Medicine
PROC: 0HBU3ZX Excision of Left Breast, Percutaneous Approach, Diagnostic (ICD-10-PCS; principal; 2019-06-14)
DX: D05.12 Intraductal carcinoma in situ of left breast (principal); N64.89 Other specified disorders of breast; R92.1 Mammographic calcification found on diagnostic imaging of breast
CPT/HCPCS: 19081; 19082; 88305-TC; 88342-TC

== ENCOUNTER 2019-07-13 08:54 | Day surgery (SDC) | payer OTHER ==
[2019-07-11 15:38] VITALS: BMI 34.9
--- NOTE | 2019-07-13 12:17 | HP ---
History & Physical Update - History History: No Change - Physical Physical: No Change - Assessment Assessment: No Change - Plan Plan: No Change (H & P done on 06/27/19)
[2019-07-13] MEDS ORDERED: MIDAZOLAM HCL 2 MG/2 ML SINGLE DOSE VIAL ONE (12:50)
[2019-07-13] MEDS ORDERED: PROPOFOL 20 ML ONE (12:50)
[2019-07-13] MEDS ORDERED: LIDOCAINE HCL/PF 2% SDV 5ML VIAL ONE (13:10)
[2019-07-13] MEDS ORDERED: ceFAZolin SODIUM 1 GM VIAL ONE (13:17)
[2019-07-13] MEDS ORDERED: BUPIVACAINE HCL/PF 0.5% (5MG/ML) 10 ML VIAL IJ ONE (13:33)
[2019-07-13] MEDS ORDERED: oxyCODONE HCL 5 MG TABLET PO PRN (14:07)
[2019-07-13] MEDS ORDERED: ONDANSETRON 4 MG/2 ML VIAL IVPUSH PRN (14:07)
[2019-07-13] MEDS ORDERED: PROMETHAZINE HCL 25 MG/1 ML VIAL IVPUSH PRN (14:07)
[2019-07-13] MEDS ORDERED: BENZOIN TINCTURE SWABSTICK TP ONE (14:40)
--- NOTE | 2019-07-13 15:15 | OP ---
Operative Note - Note: Operative Date: 07/13/19 Pre-Operative Diagnosis: left breast DCIS Operation: LEFT BREAST LUMPECTOMY (PARTIAL MASTECTOMY) Findings: [employer]ATED IN THE SPECIMEN Post-Operative Diagnosis: Same as Pre-op Surgeon: Johan Smith Anesthesia: General Specimens Removed: LEFT BREAST MASSES Estimated Blood Loss (mls): 30 Operative Report Dictated: Yes
[2019-07-13 16:09] VITALS: TEMP 98
[2019-07-13 17:19] VITALS: BP 117/72; PULSE 80
--- NOTE | 2019-07-13 19:08 | OP ---
DATE OF OPERATION: 07/13/2019 PROCEDURE: Left breast lumpectomy (partial mastectomy) with needle localization. PREOPERATIVE DIAGNOSIS: Left breast ductal carcinoma in situ. POSTOPERATIVE DIAGNOSIS: Left breast ductal carcinoma in situ. SURGEON: Johan Smith M.D. ANESTHESIA: General via laryngeal mask airway. DESCRIPTION OF PROCEDURE: This is a 63-year-old female who presented with abnormal mammogram which was reported as 2 upper outer quadrant masses of the left breast with stereotactic core needle biopsy revealing DCIS of both lesions. Lesions were adjacent to each other and with calcifications. So patient was advised wide excision or lumpectomy for the left breast noninvasive cancer. Consent was obtained after discussing the risks, benefits, and alternatives of the procedure. Patient was initially brought to the breast imaging center where wire localization was done. Three wires were inserted as a bracketing procedure. Afterwards patient was brought to the operating room, placed in supine position. Left arm abducted 90 degrees. The general anesthesia by laryngeal mask airway was administered. The operative site was prepped and draped in the usual sterile fashion. Using 0.5% Marcaine, local anesthesia was administered to the proposed incision site. A 5- cm curvilinear incision about 4 cm from the nipple was made using scalpel blade number 15 with dissection carried down to subcutaneous tissue. Further dissection using Bovie cautery was done until an aggregate size of about 8 x 6 x 6 cm of breast tissue incorporating all the bracketing wires down to the deep portion of the breast as well as the subareolar area was resected. This specimen was sent to the radiology department for specimen x-ray, which was reported back as presence of the localizing wires as well as the previously placed clip and the calcifications. Oncoplastic reconstruction was made by opposing the deep breast tissue with Vicryl 2-0 sutures to obliterate the space. This was done in 2 layers. Afterwards the dermis was closed with interrupted Vicryl 3-0 sutures, and the skin was closed with the continuous subcuticular Biosyn 4-0 sutures. The wound closure was reinforced with Steri-Strips and covered with pressure dressing, and mastectomy bra was applied. Patient was successfully extubated and transferred to the post anesthesia care unit in satisfactory condition. Estimated blood loss was about 30 mL, wound class clean. The patient received 2 g of Ancef prior to the start of the procedure. JOHAN SMITH M.D. [id number] MTDD
--- NOTE | 2019-07-18 12:52 | PATH ---
Surgical Pathology Report Patient Name: MYNOR MARQUES [facility]. Rec. #: [id number] /Age/Gender: 1955 (Age: 63) / F Account: [id number] Location: [facility] Taken: 07/13/2019 Received: 07/13/2019 Reported: 07/18/2019 Physicians: Johan Smith M.D. Specimen(s) Received A: LEFT BREAST LUMPECTOMY B: LEFT BREAST MEDIAL MARGIN Clinical History DCIS Final Diagnosis A. BREAST, LEFT, LUMPECTOMY: DUCTAL CARCINOMA IN SITU (DCIS), INTERMEDIATE TO HIGH NUCLEAR GRADE, FLAT/'CLINGING', SOLID, CRIBRIFORM, AND MICROPAPILLARY TYPES, PRESENT IN EIGHT OF FOURTEEN SLIDES (8/14), WITH CENTRAL NECROSIS AND MICROCALCIFICATIONS, ASSOCIATED WITH PREVIOUS BIOPSY SITE. DCIS SPANS UP TO 1.5 CM IN GREATEST MICROSCOPIC DIMENSION. SURGICAL MARGINS ARE UNINVOLVED BY CARCINOMA; DCIS IS 3 MM FROM CLOSEST POSTERIOR MARGIN. SEE SPECIMEN B FOR FINAL MEDIAL MARGIN. REMAINDER OF BREAST PARENCHYMA SHOWS ATYPICAL DUCTAL HYPERPLASIA, FOCAL STROMAL FIBROSIS, MICROCYSTS, CYSTIC APOCRINE METAPLASIA, COLUMNAR CELL CHANGES, AND ASSOCIATED MICROCALCIFICATIONS. PATHOLOGIC STAGE (pTNM): pTis pNx. SEE CASE SUMMARY BELOW. B. BREAST, LEFT, MEDIAL MARGIN, EXCISION: DUCTAL CARCINOMA IN SITU (DCIS) INTERMEDIATE TO HIGH NUCLEAR GRADE, CRIBRIFORM, FLAT/'CLINGING', SOLID, AND MICROPAPILLARY TYPES MEASURING UP TO 3.5 MM IN GREATEST MICROSCOPIC DIMENSION, PRESENT IN TWO OF FOUR SLIDES (2/4). DCIS IS <1MM FROM INKED SURGICAL MARGIN. SEE ALSO CASE SUMMARY BELOW. Comments DCIS of the Breast: Surgical Pathology Cancer Case Summary (Based on AJCC TNM 8 th edition) Procedure _X_ Excision (less than total mastectomy) Specimen Laterality _X_ Left Size (Extent) of DCIS Estimated size (extent) of DCIS (greatest dimension using gross and microscopic evaluation): at least (millimeters) 15 mm Number of blocks with DCIS: 10 Number of blocks examined: 18 Histologic Type _X_ Ductal carcinoma in situ Architectural Patterns _X_ Cribriform _X_ Micropapillary _X_ Solid _X_ Other (specify): Flat/'Clinging' Nuclear Grade _X__ Grade II (intermediate) _X__ Grade III (high) Necrosis _X_ Present, central necrosis Margins _X__ Uninvolved by DCIS Distance from closest margin (millimeters): <1 mm, new medial margin (B), and 3 mm from posterior margin (A) Specify closest margin: new medial margin Pathologic Stage Classification (pTNM, AJCC 8th Edition) Primary Tumor (pT) _X_ pTis (DCIS): Ductal carcinoma in situ Regional Lymph Nodes (pN) _X_ pNx: Regional lymph nodes cannot be assessed Microcalcifications _X__ Present in DCIS _X__ Present in nonneoplastic tissue Biomarker Studies Results of ER and IA studies performed on prior biopsy ([id number]) at [facility] are as follows: ER (clone 6F11 mouse monoclonal antibody by Leica): 95% nuclear staining with strong intensity (Positive). IA (clone16 mouse monoclonal antibody by Leica): ~2% nuclear staining with strong (Low positive). Positive and negative controls (internal if applicable) show appropriate results. Formalin fixation and cold ischemic times are within current ASCO/CAP recommendations for ER, IA and Her2 testing. Electronically Signed Shima Whitman M.D. Gross Description A. Received fresh on an AccuGrid, labeled "left breast lumpectomy" is a 148 G, 10 x 9 x 4.5 cm. booth-yellow, irregular, portion of fibroadipose tissue with 3 needle localization wires present. There are short sutures marking the superior aspect, medium sutures marking the medial aspect and long sutures marking anterior aspect, per the surgeon. There is no skin or nipple present. The specimen is inked as follows: superior and lateral blue; inferior green; medial yellow; anterior red; posterior black. The specimen is serially sectioned from medial to lateral. Sectioning reveals a 4 x 2.5 x 2 cm hemorrhagic biopsy site with surrounding fibrosis, 0.5 cm from anterior and posterior margins. Remaining margins are widely free. Remainder of breast parenchyma is yellow fatty, and unremarkable. Entire biopsy site and surrounding fibrosis are submitted sequentially. Physical Director sections are submitted in 14 cassettes as follows: 1-10- full face section of biopsy site, each with anterior and posterior margins; 11-medial margin; 12-lateral margin; 13- superior margin;14- inferior margin. Total formalin fixation time: Approximately 76 hours B. Received in formalin labeled "left breast medial margin" is a 5 x 3.5 x 1.5 cm portion of undesignated fibroadipose tissue. The outer surface is inked in blue. Cut section shows yellow, fatty parenchyma. No lesions identified. Specimen is entirely and sequentially submitted in 4 cassettes. [email or web address]/07/16/2019 san/07/16/2019
== END 2019-07-13 16:30 | disposition home or self-care (01) ==
LOC: JASU-SURG 08:54
PROVIDERS: ATTEND Surgery
PROC: 0HBU0ZZ Excision of Left Breast, Open Approach (ICD-10-PCS; principal; 2019-07-13 13:33)
DX: D05.12 Intraductal carcinoma in situ of left breast (principal)
CPT/HCPCS: 19281; 88307-TC; 94760

== ENCOUNTER → 2019-08-17 | Day surgery (SDC) | payer OTHER ==
--- NOTE | 2019-08-28 14:14 | PATH ---
Surgical Pathology Report Patient Name: MYNOR MARQUES [facility]. Rec. #: [id number] /Age/Gender: 1955 (Age: 63) / F Account: [id number] Location: [facility] Taken: 08/17/2019 Received: 08/17/2019 Reported: 08/28/2019 Physicians: Abel Brown M.D. Specimen(s) Received LEFT AXILLA LYMPH NODE Clinical History Nonpalpable lesion Ultrasound findings: Suspicious Final Diagnosis LYMPH NODE, AXILLA, LEFT, CORE BIOPSY: ATYPICAL B CELL PROLIFERATION, SUSPICIOUS FOR A MARGINAL ZONE LYMPHOMA. NO CARCINOMA IDENTIFIED. SEE COMMENT. Comment: The H&E section shows a diffuse and nodular proliferation of atypical lymphocytes with monocytoid appearance. These cells exhibit irregular nuclear contours and abundant pale cytoplasm. Immunostains show that most cells are B cells positive for CD20 and BCL2. They are negative for CD5, CD10, CD23, and BCL6. Ki67 positive cells are less than 10%. CD23 stain highlights focally expanded follicular dendritic meshworks but there is no secondary B cell follicles. IgD is negative which argues against primary follicles. These features are worrisome for a marginal zone lymphoma. Because the patient already had a diagnosis of DCIS of the breast on the same side, PCR for B cell clonality will be attempted for further diagnostic confirmation. There is no evidence of carcinoma. This case was sent to Dr. Tato Cee from [facility], [place], [place] ([id number]) the diagnosis above reflects his opinion. Findings discussed with Dr. Smith. See [facility] report for additional details ([id number]). Electronically Signed Shima Whitman M.D. Gross Description Received in formalin labeled "left axilla," are 3 booth-yellow, cylindrical portions of fibroadipose tissue ranging from 1.1-1.6 cm in length and averaging 0.1 cm in diameter. The specimens are submitted in toto in one cassette. Time to formalin fixation: Less than one minute Total formalin fixation time: Approximately 6 hours. DL/08/17/2019 saudi08/17/2019
== END | disposition home or self-care (01) ==
LOC: JRADUS-SUR 07:31 → JRADUS 07:31 → EDSTATUS 08:00
PROVIDERS: ATTEND Surgery
PROC: 07B63ZX Excision of Left Axillary Lymphatic, Percutaneous Approach, Diagnostic (ICD-10-PCS; principal; 2019-08-17)
PROC: BH41ZZZ Ultrasonography of Left Breast (ICD-10-PCS; 2019-08-17)
DX: D47.9 Neoplasm of uncertain behavior of lymphoid, hematopoietic and related tissue, unspecified (principal); B85.3 Phthiriasis
CPT/HCPCS: 19083; 76642-TC-LT; 87899; 88305-TC; A4648

== ENCOUNTER 2019-08-27 10:53 | Emergency (ER) | payer OTHER ==
[2019-08-27 11:00] VITALS: BP 118/67; PULSE 81; TEMP 98.5; BMI 35.7
--- NOTE | 2019-08-27 12:24 | PDOC ---
History of Present Illness - General Chief Complaint: Sore Throat Stated Complaint: SORE THROAT Time Seen by Provider: 08/27/19 11:29 - History of Present Illness Initial Comments: 08/27/19 12:22 63-year-old female with a past medical history of anxiety and depression presents for evaluation of sore throat without systemic symptoms x2 days. Past History - Past Medical History Allergies/Adverse Reactions: Allergies Allergy/AdvReac Type Severity Reaction Status Date / Time No Known Allergies Allergy Verified 08/27/19 10:57 Home Medications: Ambulatory Orders Paroxetine HCl [Paxil] 1 tab PO HS 04/25/19 Phenazopyridine HCl [Pyridium] 100 mg PO TID #10 tablet 04/25/19 Risperidone [Risperdal] 2 mg PO HS 04/25/19 Ibuprofen [Advil -] 200 mg PO QID 07/11/19 Naproxen Sodium [Aleve] 1 tab PO PRN 07/13/19 Anemia: No Asthma: Yes Cancer: No Cardiac Disorders: No CVA: No COPD: No CHF: No Dementia: No Diabetes: No GI Disorders: No Disorders: No HTN: No Hypercholesterolemia: No Kidney Stones: No Liver Disease: No Psychiatric Problems: Yes (DEPRESSION) Seizures: No Thyroid Disease: No - Surgical History Abdominal Surgery: No Appendectomy: No Cardiac Surgery: No Cholecystectomy: No Lung Surgery: No Neurologic Surgery: No Orthopedic Surgery: No - Reproductive History PID: No - Immunization History Immunization Up to Date: Yes - Psycho Social/Smoking Cessation Hx Smoking Status: Yes Smoking History: Never smoked Have you smoked in the past 12 months: Yes Number of Cigarettes Smoked Daily: 2 Information on smoking cessation initiated: No 'Breaking Loose' booklet given: 10/30/18 Hx Alcohol Use: No Drug/Substance Use Hx: No Substance Use Type: Alcohol, Cocaine, Tranquilizers Hx Substance Use Treatment: Yes (this is her first inpatient rehab) Review of Systems - Review of Systems Constitutional: No: Fever HEENTM: Yes: Difficulty Swallowing *Physical Exam - Vital Signs Last Vital Signs Temp Pulse Resp BP Pulse Ox 98.5 F 81 17 118/67 95 08/27/19 10:57 08/27/19 10:57 08/27/19 10:57 08/27/19 10:57 08/27/19 10:57 - Physical Exam Comments: 08/27/19 12:23 GENERAL: The patient is awake, alert, and fully oriented, in no acute distress. HEAD: Normal with no signs of trauma. EYES: sclera anicteric, conjunctiva clear. ENT: Ears normal NECK: Normal range of motion LUNGS: Breath sounds equal, clear to auscultation bilaterally. No wheezes, and no crackles. HEART: S1 and S2 without murmur, rub or gallop. ABDOMEN: Soft, nontender, normoactive bowel sounds. No guarding, no rebound. No masses. EXTREMITIES: Normal range of motion, no edema. No clubbing or cyanosis. No cords, erythema, or tenderness. NEUROLOGICAL: Cranial nerves II through XII grossly intact. Normal speech, normal gait. PSYCH: Normal mood, normal affect. SKIN: Warm, Dry, normal turgor, no rashes or lesions noted. Medical Decision Making - Medical Decision Making 08/27/19 12:23 Benign examination negative strep culture was sent most likely a viral pharyngitis supportive care with Tylenol and Motrin follow-up with PCP Discharge - Discharge Information Problems reviewed: Yes Clinical Impression/Diagnosis: Viral pharyngitis Condition: Stable Disposition: HOME - Admission No - Follow up/Referral Referrals: Eyad Osman MD [Primary Care Provider] - - Patient Discharge Instructions Additional Instructions: Your rapid strep was negative. A culture was sent, should you require antibiotics we will call you. Please follow-up with your primary care physician in 1 to 2 days for further evaluation and treatment options and return to the emergency room should symptoms worsen. Warm salt water gargles 5- 6 times a day will help with your throat pain as well as Tylenol and Motrin as directed. - Post Discharge Activity
== END 2019-08-27 12:28 | disposition home or self-care (01) ==
LOC: JERFT 10:53
DX: J02.9 Acute pharyngitis, unspecified (principal); B97.89 Other viral agents as the cause of diseases classified elsewhere; J45.909 Unspecified asthma, uncomplicated; F41.9 Anxiety disorder, unspecified; F32.9 Major depressive disorder, single episode, unspecified; F17.210 Nicotine dependence, cigarettes, uncomplicated
CPT/HCPCS: 87070; 87077; 87880; 99281-25

== ENCOUNTER 2019-09-01 09:04 | Emergency (ER) | payer OTHER ==
[2019-09-01 09:13] VITALS: BMI 34.9
[2019-09-01] MEDS ORDERED: MAG HYDROX/AL HYDROX/SIMETH 30 ML UNIT-DOSE CUP PO ONE (09:35)
[2019-09-01] MEDS ORDERED: FAMOTIDINE 20 MG/50 ML IVPB 20 MG/50 ML MG IVPB ONE ×2 (09:35→10:07)
--- NOTE | 2019-09-01 09:40 | PDOC ---
History of Present Illness - General Chief Complaint: Chest Pain Stated Complaint: LF SIDE CHEST PAIN Time Seen by Provider: 09/01/19 09:22 History Source: Patient Exam Limitations: No Limitations - History of Present Illness Initial Comments: 09/01/19 09:36 HPI 63 YOF with h/o anxiety, depression, asthma, breast ca s/p lumpectomy presenting with substernal /anterior chest pain x 2 days. pt describes chest discomfort as "tightness" and nonradiating (at times does spread down to epigastrium), intermittently occurring, nonexertional. A/W shortness of breath, lightheadedness, "gas" and belching, nonproductive cough. symptoms occur when she lies at rest, improved with sitting up. episodes can last 1-2 minutes before self resolving. no meds taken. she was recently seen here this week for sore throat, rx'd azithromycin which she has taken x 2 days; her strep was neg, throat cultures came back with Strep B. sore throat is improving. Denies fever, chills, palpitation, abdominal pain, N, V, D, abdominal pain, bladder and bowel problems, focal weakness/paresthesias, leg swelling/pain, rash. No sick contacts or travel. new medication: only azithromycin for sore throat.. Allergies: None Past Medical History/PSH: as above - lumpectomy, C section, lipoma excision Social history: Lives with family. No tobacco, ETOH or drug use. Meds: as documented in EMR Family history: no history of sudden deaths/OR/arrhythmias Review of systems Constitutional: no fevers or chills. No weakness HEENT: +lightheadedness, +sore throat. no headache No congestion. No visual/ hearing disturbances. CVS: no syncope. +chest pain. Resp: +SOB, +cough. Gastrointestinal: no abdominal pain, nausea, vomiting, diarrhea. Genitourinary: no urinary sx, hematuria. MUSCULOSKELETAL: No joint pain and swelling. No neck or back pain. SKIN: no redness or skin changes, no discharge, no rash. No wounds. Hematologic: no easy bruising/bleeding. NEUROLOGIC: No headache, LOC or altered mental status. No weakness, numbness or tingling. Psych: no anxiety or depression Allergic/Immunologic: no allergies All other systems reviewed and negative, or as documented in HPI. Physical exam General: Well appearing, awake and alert, NAD. HEENT: NCAT, PERRL, EOMI, clear conjunctiva, anicteric, moist mucus membranes, +oropharyngeal exudates, faint erythema. Neck: neck supple, FROM Resp: CTAB, normal and even respirations, no respiratory distress CVS: RRR, no murmurs, 2+ peripheral pulses throughout, no peripheral edema Abdomen: soft, obese, mild epigastric TTP, no rebound or guarding. Back: nontender, normal inspection and ROM MSK: no edema, CEJA x4, ROM intact. No clubbing or cyanosis. normal bulk and tone. Extremities: no calf tenderness Neuro: alert, oriented appropriately; no focal neurologic deficits Psych: Calm and cooperative Skin: warm and well perfused, cap refill <2 sec, normal color, no rash or skin discoloration. 09/01/19 09:40 09/01/19 11:16 Past History - Past Medical History Allergies/Adverse Reactions: Allergies Allergy/AdvReac Type Severity Reaction Status Date / Time No Known Allergies Allergy Verified 09/01/19 09:08 Home Medications: Ambulatory Orders Paroxetine HCl [Paxil] 1 tab PO HS 04/25/19 Risperidone [Risperdal] 2 mg PO HS 04/25/19 Azithromycin [Zithromax -] 250 mg PO UTDICT #6 tab 08/30/19 Albuterol Sulfate Inhaler - [Ventolin HFA Inhaler -] 1 - 2 inh PO Q4H PRN #1 inhaler 09/01/19 Anemia: No Asthma: Yes Cancer: No Cardiac Disorders: No CVA: No COPD: No CHF: No Dementia: No Diabetes: No GI Disorders: No Disorders: No HTN: No Hypercholesterolemia: No Kidney Stones: No Liver Disease: No Psychiatric Problems: Yes (DEPRESSION, anxiety) Seizures: No Thyroid Disease: No - Surgical History Abdominal Surgery: No Appendectomy: No Cardiac Surgery: No Cholecystectomy: No Lung Surgery: No Neurologic Surgery: No Orthopedic Surgery: No - Reproductive History PID: No - Immunization History Immunization Up to Date: Yes - Psycho Social/Smoking Cessation Hx Smoking Status: Yes Smoking History: Current every day smoker Have you smoked in the past 12 months: Yes Number of Cigarettes Smoked Daily: 2 Information on smoking cessation initiated: Yes 'Breaking Loose' booklet given: 10/30/18 Hx Alcohol Use: Yes Drug/Substance Use Hx: No Substance Use Type: Alcohol, Cocaine, Tranquilizers Hx Substance Use Treatment: Yes (this is her first inpatient rehab) Cardiac Specific PMH - Complaint Specific PMHX Pacemaker: No *Physical Exam - Vital Signs Last Vital Signs Temp Pulse Resp BP Pulse Ox 97.3 F L 75 17 124/72 98 09/01/19 11:37 09/01/19 11:37 09/01/19 11:37 09/01/19 11:37 09/01/19 11:37 Heart Score/ECG Review - History History: Slightly suspicious - Electrocardiogram EKG: Non specific repolarization disturbance - Age Age: 45-65 - Risk Factors Risk Factors Heart Score: Yes Hx Obesity Based on the list above the patient has:: 1-2 risk factors - Troponin Troponin: </= normal limit - Score Heart Score - Total: 3 #1 ECG reviewed & interpreted by me at: 09:05 General ECG Interpretation: Sinus Rhythm, Normal Rate, Normal Intervals Compared to previous ECG there are: No significant change 09/01/19 09:42 EKG normal sinus rhythm at 75 bpm, no interval abnormalities, narrow QRS, ST and T wave segments and morphology normal. Nonspecific T wave abnormalities, unchanged from prior ED Treatment Course - LABORATORY CBC & Chemistry Diagram: 09/01/19 09:43 09/01/19 09:43 - ADDITIONAL ORDERS Additional order review: Laboratory Results 09/01/19 09/01/19 09:43 09:43 D-Dimer 337 Sodium 138 Potassium 4.2 Chloride 106 Carbon Dioxide 28 Anion Gap 4 L BUN 17.0 Creatinine 0.8 Est GFR (CKD-EPI)AfAm 92.22 Est GFR (CKD-EPI)NonAf 79.57 Random Glucose 90 Calcium 8.4 L Total Bilirubin 0.3 AST 10 L ALT 17 Alkaline Phosphatase 44 L Creatine Kinase 60 Troponin I < 0.02 Total Protein 6.5 Albumin 3.5 Lipase 77 09/01/19 09:43 RBC 4.26 MCV 95.9 MCHC 33.3 RDW 13.8 MPV 6.7 L Neutrophils % 50.0 Lymphocytes % 37.5 Monocytes % 9.3 Eosinophils % 2.5 Basophils % 0.7 - RADIOLOGY Radiology Studies Ordered: Category Date Time Status CHEST PA & LAT [RAD] Stat Radiology 09/01/19 09:20 Completed Chest X-Ray Result: No Infiltrates Radiograph Interpretation: 09/01/19 11:49 Linear band of atelectasis in the left lingula, likely chronic as this is present in prior images. This is suspicious for mucous plugging which is consistent with patient's history of asthma. - Medications Given in the ED: ED Medications Discontinued Medications Generic Name Dose Route Start Last Admin Trade Name Ramy PRN Reason Stop Dose Admin Al Hydroxide/Mg Hydroxide 30 ml 09/01/19 09:35 09/01/19 10:34 Mylanta Oral Suspension - PO 09/01/19 09:36 30 ml ONCE ONE Administration Albuterol/Ipratropium 1 amp 09/01/19 11:17 09/01/19 11:28 Duoneb - NEB 09/01/19 11:18 1 amp ONCE ONE Administration Famotidine/Sodium Chloride 20 mg in 50 mls @ 100 mls/hr 09/01/19 09:35 10:34 Pepcid 20 Mg Premixed Ivpb - IVPB 09/01/19 10:04 100 mls/hr ONCE ONE Administration Medical Decision Making - Medical Decision Making 09/01/19 09:41 Vital Signs Temp Pulse Resp BP Pulse Ox 97.9 F 79 18 113/84 100 09/01/19 09:08 09/01/19 09:08 09/01/19 09:08 09/01/19 09:08 09/01/19 09:08 DDx chest pain: ACS, coronary vasospasm, NSTEMI, arrhythmia, unstable angina, PE , dissection, PUD, esophageal spasm, GERD, gastritis, costochondritis, pneumonia , pleurisy, pericarditis/myocarditis. dehydration, electrolyte/metabolic derangements. viral syndrome. asthma. No evidence of ACS, pericarditis, myocarditis, pulmonary embolism, pneumothorax , pneumonia, Zoster, or esophageal perforation. Historically not abrupt in onset , tearing or ripping, pulses symmetric, no evidence of aortic dissection. EKG normal sinus rhythm at 75 bpm, no interval abnormalities, narrow QRS, ST and T wave segments and morphology normal. Nonspecific T wave abnormalities, unchanged from prior Chest pain HEART score 3 (for primarily obesity, see heart score document) which denotes Low risk and probability for ACS, less than 1% risk for MACE at 4- 6 wks currently chest pain free, no sob. well appearing labs and lytes unremarkable. dimer neg, so unlikely PE. pocus echo neg for effusion, normal EF and good concentric squeeze, RV<LV. could be viral mediated cough/asthma, as pt admits to h/o asthma and related chest tightness. with neg trop/dimer, unlikely cardiovascular or ACS related. recent strep test +strep B, on azithromycin previously prescribed 09/01/19 11:15 - on reeval, pt with cough, requesting nebulizer treatment. speaking clear sentences. no cp or sob. Pt to be discharged in stable condition. Patient and family made aware of clinical impression, treatment recommendations and disposition plan, return precautions discussed (including but not limited to new or persistent/worsening symptoms, pain, fevers, or signs of infection, chest pain, respiratory distress , inability to tolerate oral intake, dehydration, syncope, or neurologic changes ). Follow up with PMD and/or cards specialist (referrals given) as recommended, follow up information provided, take medications as instructed for duration of time. continue with supportive care, avoid triggers and precipitants. All questions answered to patient's satisfaction and expressed understanding and comfort with this. At the time of discharge, the patient is alert, clinically improved, tolerating po and verbalizes understanding of instructions, satisfied with the care received and felt comfortable with the plan. Patient does not suffer from an acute life-threatening medical condition at this time and is safe for outpatient follow-up. 09/01/19 11:51 Discharge - Discharge Information Problems reviewed: Yes Clinical Impression/Diagnosis: Chest pain Qualifiers: Chest pain type: unspecified Qualified Code(s): R07.9 - Chest pain, unspecified Condition: Good Disposition: HOME - Admission No - Additional Discharge Information Prescriptions: Albuterol Sulfate Inhaler - [Ventolin HFA Inhaler -] 1 - 2 inh PO Q4H PRN #1 inhaler PRN Reason: cough, shortness of breath - Follow up/Referral Referrals: Eyad Osman MD [Primary Care Provider] - King Giang MD [Staff Physician] - Bryon Khan MD [Staff Physician] - - Patient Discharge Instructions Patient Printed Discharge Instructions: DI for Chest Pain Additional Instructions: 1) Please follow-up with your primary care doctor in the next 1-2 days. Please call tomorrow for for any urgent issues. cardiology referrals given for workup of your chest pain. 2) You were given a copy of the tests performed today. Please bring the results with you and review them with your primary care doctor. Your laboratory / imaging results were normal, including EKG and cardiac enzymes and test for blood clots 3) If you have any worsening of symptoms or any other concerns please return to the ED immediately. Return if worsening symptoms including fevers, headache, vomiting, visual or hearing disturbances, abdominal pain, chest pain, shortness of breath, syncope, dehydration, inability to take things by mouth/vomiting, altered mental status, or worsening concerning symptoms. 4) Please continue taking your home medications as directed. your medications on discharge include albuterol inhaler every 4-6 hours as needed for the cough. you most likely have a viral syndrome/upper respiratory infection. finish your antibiotics as prescribed. Stay well hydrated and rest adequately. Make an appointment. If you cannot follow-up with your primary care doctor please return to the ED - Post Discharge Activity Work/Back to School Note: Back to Work
[2019-09-01] MEDS ORDERED: MAG HYDROX/AL HYDROX/SIMETH 30 ML UNIT-DOSE CUP ONE (10:07)
[2019-09-01 10:08] LABS: BASO % 0.7 % (0-2.0); EOS % 2.5 % (0-4.5); HEMATOCRIT 40.8 % (32.4-45.2); HEMOGLOBIN 13.6 GM/dL (10.7-15.3); LYMPH % 37.5 % (8-40); MCH 31.9 pg (25.7-33.7); MCHC 33.3 g/dl (32.0-36.0); MEAN CELL VOLUME 95.9 fl (80-96); MEAN PLT VOLUME 6.7 fl (7.5-11.1); MONO % 9.3 % (3.8-10.2); PLATELET COUNT 326 K/MM3 (134-434); RBC 4.26 M/mm3 (3.60-5.2); RDW 13.8 % (11.6-15.6)
[2019-09-01 10:30] LABS: ALBUMIN 3.5 g/dl (3.4-5.0); ALK PHOS 44 U/L (45-117); ANION GAP 4 MMOL/L (8-16); BILIRUBIN,TOTAL 0.3 mg/dL (0.2-1); CALCIUM 8.4 mg/dL (8.5-10.1); CHLORIDE 106 mmol/L (98-107); CO2 28 mmol/L (21-32); CREATININE 0.8 mg/dL (0.55-1.3); GLUCOSE,RANDOM 90 mg/dL (74-106); LIPASE 77 U/L (73-393); POTASSIUM 4.2 mmol/L (3.5-5.1); SGOT/AST 10 U/L (15-37); SGPT/ALT 17 U/L (13-61); SODIUM 138 mmol/L (136-145); TOT PROT 6.5 g/dl (6.4-8.2)
[2019-09-01] MEDS ORDERED: AZITHROMYCIN 250 MG TABLET ONE (10:34)
[2019-09-01] MEDS ORDERED: ALBUTEROL SO4 2.5/IPRATROPIUM 0.5 INH SOL 3 ML VIAL.NEB. NEB ONE (11:17)
[2019-09-01 11:38] VITALS: BP 124/72; PULSE 75; TEMP 97.3
--- NOTE | 2019-09-02 10:53 | EKG ---
Test Reason : Blood Pressure : / mmHG Vent. Rate : 075 BPM Atrial Rate : 075 BPM P-R Int : 146 ms QRS Dur : 076 ms QT Int : 388 ms P-R-T Axes : 069 -26 028 degrees QTc Int : 433 ms NORMAL SINUS RHYTHM NORMAL ECG WHEN COMPARED WITH ECG OF 03-APR-2014 11:37, NON-SPECIFIC CHANGE IN ST SEGMENT IN ANTERIOR LEADS Confirmed by VICKIE RODRIGUEZ MD ([id number]) on 09/02/2019 10:53:08 AM Referred By: Confirmed By:VICKIE RODRIGUEZ MD
== END 2019-09-01 11:50 | disposition home or self-care (01) ==
LOC: JER 09:04
PROC: 3E0F7GC Introduction of Other Therapeutic Substance into Respiratory Tract, Via Natural or Artificial Opening (ICD-10-PCS; principal; 2019-09-01)
PROC: 3E033GC Introduction of Other Therapeutic Substance into Peripheral Vein, Percutaneous Approach (ICD-10-PCS; 2019-09-01)
DX: R07.9 Chest pain, unspecified (principal); F41.9 Anxiety disorder, unspecified; J45.909 Unspecified asthma, uncomplicated; F32.9 Major depressive disorder, single episode, unspecified; Z85.3 Personal history of malignant neoplasm of breast; F17.210 Nicotine dependence, cigarettes, uncomplicated
CPT/HCPCS: 36415; 71046-TC-FY; 80053; 82550; 83690; 84484; 85025; 85379; 93005; 93010; 93308; 94640; 96365; 99285-25

== ENCOUNTER 2019-09-14 09:54 | Day surgery (SDC) | payer OTHER ==
[2019-09-14 10:12] VITALS: BMI 33.3
[2019-09-14] MEDS ORDERED: LIDOCAINE 1%-EPI 1:100,000 30 ML MDV IJ ONE (10:27)
[2019-09-14] MEDS ORDERED: BUPIVACAINE HCL/PF 0.5% (5 MG/ML) 30 ML VIAL IJ ONE ×3 (10:27→15:47)
--- NOTE | 2019-09-14 13:39 | HP ---
Admitting History and Physical - Admission Chief Complaint: left breast DCIS and abnormal axillary lymph node History of Present Illness: 63 y.o. female s/p left breast lumpectomy with findings of DCIS suspicious for positive margin vs. multifocal disease. Had breast MRI that showed no multifocal /multicentric disease but an enlarged left axillary LN. 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 Patient was advised wide re-excision of DCIS and axillary LN biopsy after discussing the risks, benefits, and alternatives to the procedure. History Source: Patient Limitations to Obtaining History: No Limitations - Past Surgical History Past Surgical History: Yes: Breast Biopsy Additional Past Surgical History: left breast lumpectomy - Smoking History Smoking history: Current every day smoker Have you smoked in the past 12 months: Yes Aproximately how many cigarettes per day: 2 - Alcohol/Substance Use Hx Alcohol Use: Yes Home Medications - Allergies Allergies/Adverse Reactions: Allergies Allergy/AdvReac Type Severity Reaction Status Date / Time No Known Allergies Allergy Verified 09/14/19 10:12 - Home Medications Home Medications: Ambulatory Orders Paroxetine HCl [Paxil] 1 tab PO HS 04/25/19 Risperidone [Risperdal] 2 mg PO HS 04/25/19 Albuterol Sulfate Inhaler - [Ventolin HFA Inhaler -] 1 - 2 inh PO Q4H PRN #1 inhaler 09/01/19 Physical Examination Vital Signs: Vital Signs Temperature 98.8 F 09/14/19 10:08 Pulse Rate 78 09/14/19 10:08 Respiratory Rate 18 09/14/19 10:08 Blood Pressure 111/77 09/14/19 10:08 O2 Sat by Pulse Oximetry (%) 95 09/14/19 10:18 Constitutional: Yes: Well Nourished, No Distress Eyes: Yes: Conjunctiva Clear HENT: Yes: Normocephalic Neck: Yes: Supple Cardiovascular: Yes: Regular Rate and Rhythm Respiratory: Yes: CTA Bilaterally Gastrointestinal: Yes: Soft Breast(s): Yes: Left (well healed post lumpectomy scar, palpable 2 cm left axillary lymph node) Imaging - Results Ultrasound: Report Reviewed, Image Reviewed MRI: Report Reviewed, Image Reviewed Problem List - Problems (1) Ductal carcinoma in situ (DCIS) of left breast Assessment/Plan: abnormal left axillary lymph node Wide re-excision of left breast DCIS and left axillary LN biopsy with wire localization Code(s): D05.12 - INTRADUCTAL CARCINOMA IN SITU OF LEFT BREAST
[2019-09-14] MEDS ORDERED: fentaNYL CITRATE 250 MCG/5 ML VIAL ONE (13:56)
[2019-09-14] MEDS ORDERED: PROPOFOL 20 ML ONE ×2 (13:56→15:52)
[2019-09-14] MEDS ORDERED: ROCURONIUM BROMIDE 50 MG/5 ML SYRINGE ONE (13:56)
[2019-09-14] MEDS ORDERED: MIDAZOLAM HCL 2 MG/2 ML SINGLE DOSE VIAL ONE (13:57)
[2019-09-14] MEDS ORDERED: LIDOCAINE HCL 2% JELLY (5 ML/TUBE) ONE ×2 (14:02)
[2019-09-14] MEDS ORDERED: LIDOCAINE HCL/PF 2% SDV 5ML VIAL ONE (14:05)
[2019-09-14] MEDS ORDERED: oxyCODONE HCL 5 MG TABLET PO PRN ×2 (14:20→15:45)
[2019-09-14] MEDS ORDERED: ONDANSETRON 4 MG/2 ML VIAL IVPUSH PRN ×2 (14:20→15:45)
[2019-09-14] MEDS ORDERED: LACTATED RINGERS SOLUTION 1,000 ML IV SCH ×2 (14:30→15:45)
[2019-09-14] MEDS ORDERED: ceFAZolin SODIUM 1 GM VIAL IVPB ONE (14:44)
[2019-09-14] MEDS ORDERED: LIDOCAINE HCL 1%, 10 MG/ML (20ML VIAL) ONE (14:49)
[2019-09-14] MEDS ORDERED: KETOROLAC TROMETHAMINE 30 MG/1 ML VIAL ONE (14:50)
[2019-09-14] MEDS ORDERED: DEXAMETHASONE SOD PHOSPHATE 4 MG/1 ML VIAL ONE (14:50)
[2019-09-14] MEDS ORDERED: BUPIVACAINE HCL 0.5% 250 MG/50 ML VIAL IJ ONE ×2 (14:57)
[2019-09-14] MEDS ORDERED: NEOSTIGMINE METHYLSULFATE 0.5 MG/ML - 10 ML MDV ONE (15:36)
[2019-09-14] MEDS ORDERED: PROMETHAZINE HCL 25 MG/1 ML VIAL IVPUSH PRN (15:45)
[2019-09-14] MEDS ORDERED: BENZOIN/ALOE VERA/STORAX/TOLU 58 ML BOTTLE TP ONE (16:07)
--- NOTE | 2019-09-14 16:35 | OP ---
Operative Note - Note: Operative Date: 09/14/19 Pre-Operative Diagnosis: left breast DCIS s/p lumpectomy with positive margin, left axillary LN, r/o lymphoma Operation: Wide re-excision, left breast DCIS, Left axillary LN biopsy Findings: 2 cm enlarged left axillary LN Left breast DCIS wound cavity with minimal seroma Post-Operative Diagnosis: Same as Pre-op Surgeon: Johan Smith Anesthesia: General Specimens Removed: breast tissue and axillary lymph node Estimated Blood Loss (mls): 20 Operative Report Dictated: Yes
[2019-09-14] MEDS ORDERED: ALBUTEROL SO4 8 GM HFA INHALER IH ONE (16:42)
[2019-09-14] MEDS ORDERED: GLYCOPYRROLATE 0.2 MG/1 ML VIAL ONE (16:42)
--- NOTE | 2019-09-14 17:19 | OP ---
DATE OF OPERATION: 09/14/2019 PROCEDURE: Left breast ductal carcinoma in situ wide re-excision and left axillary lymph node biopsy. PREOPERATIVE DIAGNOSIS: Left breast ductal carcinoma in situ status post lumpectomy with positive margin and left axillary lymph node, rule out lymphoma. POSTOPERATIVE DIAGNOSIS: Left breast ductal carcinoma in situ status post lumpectomy with positive margin and left axillary lymph node, rule out lymphoma. SURGEON: Johan Smith MD ANESTHESIA: General endotracheal. FINDINGS AND PROCEDURE: This is a 63-year-old female who underwent lumpectomy for left breast mass for a newly diagnosed DCIS of left breast. The pathologic report came back as presence of DCIS at the extra tissue excised from the medial margin , which was suspicious for a positive margin vs. multifocal disease. A repeat mammogram and bilateral breast MRI showed no suspicious residual mass or multifocal DCIS; however, there was an enlarged axillary lymph node. Core needle biopsy of the axillary lymph node revealed a possible marginal B- cell lymphoma, so patient was advised wide re-excision of the DCIS and lymph node biopsy to rule out lymphoma. Consent was obtained after discussing the risks, benefits , and alternatives of the procedure. Prior to the procedure, patient was taken to the breast imaging center for a preoperative wire localization of the axillary lymph node. Patient was then brought to the operating room and placed in a supine position with both arms abducted 90 degrees. General endotracheal anesthesia was administered. The operative site was prepped and draped in the usual sterile fashion. Using 0.5% Marcaine, local anesthesia was administered to the proposed incision sites. A 4-cm skin crease incision over the axilla was made using scalpel blade No. 10 with dissection carried down to the subcutaneous tissue. Further dissection using Bovie cautery combined with Metzenbaum scissors and using the wire as a guide, the 2-cm lymph node was harvested and sent to the Pathology department as a fresh specimen. Gross packing was placed in the wound. The left breast problem was then addressed by making a 5-cm elliptical incision over the old scar using scalpel blade No. 10, and dissection was carried down to subcutaneous tissue. Further dissection using Bovie cautery was done until the ellipse of skin down to the deep subcutaneous tissue was removed and sent as an anterior margin with a wide re-excision. The wound cavity was accessed and was noted to contain a small amount of seroma. Medial, lateral, superior, inferior , and posterior margins were excised with specimens ranging from 4 x 2 cm in size. After all the margins were sent, the cavity was palpated and was noted to be free of suspicious induration or mass. The cavity was then closed with multiple layers of Vicryl 2-0 sutures to obliterate space. The skin was then closed with interrupted Vicryl 3-0 suture for the dermis and continuous Monocryl 4-0 suture for the subcuticular layer. The wound closure was reinforced with Steri-Strips. The axillary wound was closed with interrupted Biosyn 4-0 suture for the dermis and continuous Biosyn 4-0 suture for the subcuticular layer. The wound closure was also reinforced with Steri-Strips and covered with sterile dressing. A mastectomy bra was applied. The patient was successfully extubated and transferred to the post anesthesia care unit in satisfactory condition. ESTIMATED BLOOD LOSS: About 20 mL. WOUND CLASS: Clean. The patient received a gram of Ancef prior to the start of the procedure. Abel [id number] MTDD
[2019-09-14 19:12] VITALS: BP 147/90; PULSE 85; TEMP 97.7
--- NOTE | 2019-09-21 18:06 | PATH ---
Surgical Pathology Report Patient Name: MYNOR MARQUES [facility]. Rec. #: [id number] /Age/Gender: 1955 (Age: 63) / F Account: [id number] Location: [facility] SURGICAL Taken: 09/14/2019 Received: 09/14/2019 Reported: 09/21/2019 Physicians: Johan Smith M.D. 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 AXILLARY SENTINEL LYMPH NODE, LEFT, EXCISION: ONE LYMPH NODE NEGATIVE FOR CARCINOMA ON H&E AND CONFIRMED BY AE1/3 IMMUNOHISTOCHEMICAL STAIN (0/1). CHANGES OF PRIOR BIOPSY PRESENT. SEE COMMENT. B. BREAST, LEFT, ANTERIOR MARGIN, EXCISION: BENIGN BREAST PARENCHYMA AND SKIN WITH CHANGES OF PRIOR BIOPSY. C. BREAST, LEFT, MEDIAL ASPECT, MEDIAL MARGIN, EXCISION: FOCAL DUCTAL CARCINOMA IN SITU (DCIS), INTERMEDIATE TO HIGH NUCLEAR GRADE, FLAT/"CLINGING" TYPE, PRESENT IN ONE OF NINE SLIDES (1/9). DCIS SPANS 2 MM IN GREATEST MICROSCOPIC DIMENSION. DCIS IS <1 MM FROM NEW MARGIN. CHANGES OF PRIOR BIOPSY PRESENT. D. BREAST, LEFT, SUPERIOR MARGIN, EXCISION: FOCAL DUCTAL CARCINOMA IN SITU (DCIS), INTERMEDIATE TO HIGH NUCLEAR GRADE, SOLID AND FLAT/"CLINGING" TYPES, PRESENT IN ONE OF NINE SLIDES (1/9). DCIS SPANS 2 MM IN GREATEST MICROSCOPIC DIMENSION. SURGICAL MARGIN IS UNINVOLVED; DCIS IS 1 MM FROM SURGICAL MARGIN. CHANGES OF PRIOR BIOPSY PRESENT. E. BREAST, LEFT, LATERAL MARGIN, EXCISION: BENIGN BREAST PARENCHYMA WITH CHANGES OF PRIOR BIOPSY. F. BREAST, LEFT, POSTERIOR MARGIN, EXCISION: DUCTAL CARCINOMA IN SITU (DCIS), INTERMEDIATE TO HIGH NUCLEAR GRADE, SOLID AND FLAT/"CLINGING" TYPES, PRESENT IN TWO OF FIVE SLIDES (2/5). DCIS SPANS 3 MM IN GREATEST MICROSCOPIC DIMENSION. DCIS IS <1 MM FROM SURGICAL MARGIN. CHANGES OF PRIOR BIOPSY PRESENT. G. BREAST, LEFT, INFERIOR MARGIN, EXCISION: BENIGN BREAST PARENCHYMA WITH CHANGES OF PRIOR BIOPSY. Comment: Part A, In view of the prior atypical diagnosis, specimen is [facility] to [facility] for hematopathology consultation to rule out the possibility of lymphoma. Findings will be reported as an addendum. Part C and D, Immunohistochemical stains performed and interpreted at [facility] (blocks C2 and D1) show E-cadherin is positive, supportive of DCIS. Positive and negative controls (internal if applicable) show appropriate results. Electronically Signed Shima Whitman M.D. Amendments Amended: 09/21/2019 Previous Signout Date: 09/21/2019 Addendum Reported: 09/25/2019 Addendum Diagnosis Hematopathology consultation shows no evidence of lymphoma. See consultation report below: "Benign lymph node with sinus histiocytosis. Comment: The H&E sections show preserved alfonso architecture with focal paracortical hyperplasia sinus histiocytosis. Focal pigmentation is noted. Secondary B cell follicles are rare and only a few small germinal centers are noted. No significant cytologic atypia is seen. Immunohistochemical studies on block 2 show a normal B cell and T cell distribution. There are many B cell nodules with overlapping follicular dendritic meshworks (CD21 and CD23 positive). These B cells do not express CD5, CD10, CD23, CD43, cyclin D1 and BCL6. Most of these cells are IgD negative, as well, suggesting marginal zone hyperplasia. Rare small germinal centers are BCL2 negative. Scattered plasma cells are polytypic. Despite that there appears to be an increase in B cells in some area, flow cytometry on the same biopsy sample did not identify any clonal B cell population. The prior "atypical" B cell proliferation in a needle biopsy was likely related to an impression from a small sample, and the lack of a clonal IGH gene rearrangement by PCR is consistent with the current findings. Thus the overall features are most consistent with a reactive lymph node. There is no diagnostic evidence of malignancy." This case was sent to Dr. Tato Lopes from [facility], [place], [place] ([id number]) the diagnosis above reflects his opinion. Concurrent Flow Cytometry performed and interpreted at [facility], (Spec # [id number]) shows no evidence of a B-cell or T-cell lymphoma. See [facility] reports for additional details. Shima Whitman M.D. Gross Description A. Received fresh labeled "left axillary sentinel lymph node," is a 2.4 x 1.0 x 0.8 cm booth lymph node. The specimen is trisected and a office services representative portion is placed in RPMI solution and sent for flow cytometry. The remainder of the specimen is entirely submitted in 2 cassettes. B. Received in formalin labeled "anterior margin left breast," is a 4.5 x 0.7 cm brown, elliptical, unoriented portion of skin excised to a depth of 1.8 cm. The epidermal surface is unremarkable. The specimen is inked black, serially sectioned and entirely and sequentially submitted in 5 cassettes. C. Received in formalin labeled "medial aspect medial margin left breast," is a 5.0 x 3.0 x 1.7 cm portion of fibroadipose tissue with an undesignated suture presumably marking the new margin. The presumed new margin is inked black and the presumed biopsy cavity side is inked red. The specimen is entirely and sequentially submitted in 9 cassettes. D. Received in formalin labeled "superior margin left breast," is a 4.7 x 3.4 x 1.7 cm unoriented portion of fibroadipose tissue. One side is inked black and the opposing side is inked red. The specimen is serially sectioned and entirely and sequentially submitted in 9 cassettes. E. Received in formalin labeled "lateral margin left breast," and a 4.4 x 1.5 x 1.5 cm unoriented portion of fibroadipose tissue. One side is inked black and the opposing side is inked red. The specimen is serially sectioned and entirely submitted in 5 cassettes. F. Received in formalin labeled "posterior margin left breast," is a 4.3 x 2.8 x 1.2 cm unoriented portion of fibroadipose tissue. One side is inked black and the opposing side is inked red. The specimen is serially sectioned and entirely submitted in 5 cassettes. G. Received in formalin labeled "inferior margin left breast," is a 4.0 x 2.5 x 1.3 cm unoriented portion of fibroadipose tissue. One side is inked black and the opposing side is inked red. The specimen is serially sectioned and entirely submitted in 5 cassettes. 09/14/2019 saudi09/14/2019
== END 2019-09-14 18:20 | disposition home or self-care (01) ==
LOC: JASU-SURG 09:54
PROVIDERS: ATTEND Surgery
PROC: 0HBU0ZZ Excision of Left Breast, Open Approach (ICD-10-PCS; principal; 2019-09-14 11:00)
DX: D05.12 Intraductal carcinoma in situ of left breast (principal)
CPT/HCPCS: 19281; 88307-TC; 88342-TC; 94760

== ENCOUNTER 2020-06-06 04:23 | Day surgery (SDC) | payer OTHER ==
[2020-06-05 13:09] VITALS: BMI 36.6
[2020-06-06 11:31] VITALS: TEMP 97.3
--- NOTE | 2020-06-06 12:26 | PROC ---
Procedure Note Procedure: Preprocedure Diagnosis: Lumbar Facet Arthropathy Post Procedure Diagnosis: same Anesthesia:local Procedure Performed: Right and Left L3 L4 L5 medial branch blocks under fluoroscopic guidance Procedure: After the risks and benefits were explained, informed consent was obtained. The patient was then taken to the procedure room and positioned prone on the procedure table. Time out was performed. The region overlying the appropriate vertebral bodies was identified using fluoroscopy. The skin was prepped and draped in the usual sterile fashion. The skin and soft tissues were anesthetized using 1% lidocaine. Using fluoroscopic guidance, 22 gauge 3.5 inch spinal needles were then introduced to the juncture of the superior articular processes and the transverse processes of the RIGHT L3, L4, and L5 medial branches are located. Omnipaque 180 confirmed appropriate needle placement. There was no epidural or vascular flow observed. .75% bupivacaine was drawn into a syringe. 0.5cc of this solution was then injected at each level. The same procedure was repeated on the LEFT side at the same levels. The patient tolerated the procedure well and there were no complications. The patient was taken to the post procedure recovery area in good condition. Vital signs remained stable before, and after the procedure. The patient was given oral follow-up instructions.The patient was given a follow up appointment with me in the near future. Dereje Tavarez D.O.
[2020-06-06] MEDS ORDERED: DEXAMETHASONE SOD PHOSPHATE/PF 10 MG/ML SDV ONE (12:30)
[2020-06-06] MEDS ORDERED: BUPIVACAINE HCL/PF 0.75% 10 ML VIAL ONE (12:31)
[2020-06-06] MEDS ORDERED: LIDOCAINE 1% P/F 10 MG/ML VIAL INF ONE (12:50)
[2020-06-06] MEDS ORDERED: BUPIVACAINE HCL/PF 0.5% (5 MG/ML) 30 ML VIAL IJ ONE (12:51)
[2020-06-06] MEDS ORDERED: IOHEXOL 180 MG/1 ML ML IJ ONE (12:51)
[2020-06-06 19:28] VITALS: BP 133/79; PULSE 79
== END 2020-06-06 13:30 | disposition home or self-care (01) ==
LOC: JASU-SURG 04:23
PROVIDERS: ATTEND Pain Medicine Pain Medicine
PROC: 3E0T33Z Introduction of Anti-inflammatory into Peripheral Nerves and Plexi, Percutaneous Approach (ICD-10-PCS; 2020-06-06)
PROC: 3E0T3BZ Introduction of Anesthetic Agent into Peripheral Nerves and Plexi, Percutaneous Approach (ICD-10-PCS; principal; 2020-06-06 12:00)
DX: M47.896 Other spondylosis, lumbar region (principal)
CPT/HCPCS: 76000-TC-FY

== ENCOUNTER 2022-10-01 20:50 | Observation (INO) | payer OTHER ==
[2022-10-01] MEDS ORDERED: DEXAMETHASONE SOD PHOSPHATE 10 MG/1 ML VIAL IM ONE (22:14)
[2022-10-01] MEDS ORDERED: MAGNESIUM SULF 50% (8.12 MEQ/2 ML-1 GM VIAL) IVPB ONE (22:15)
[2022-10-01] MEDS ORDERED: MAGNESIUM SULFATE IN WATER 2 GM/50 ML IVPB IVPB ONE (22:23)
[2022-10-01] MEDS ORDERED: DEXAMETHASONE SOD PHOSPHATE 10 MG/1 ML VIAL ONE (22:23)
[2022-10-01] MEDS: ALBUTEROL SO4 2.5/IPRATROPIUM 0.5 INH SOL 3 ML VIAL.NEB. NEB SCH (22:42)
[2022-10-01 22:56] LABS: BASO % 1.3 % (0-2.0); EOS % 3.5 % (0-4.5); HEMATOCRIT 43.5 % (32.4-45.2); HEMOGLOBIN 14.3 GM/dL (10.7-15.3); LYMPH % 32.8 % (8-40); MCH 31.2 pg (25.7-33.7); MCHC 32.8 g/dl (32.0-36.0); MEAN PLT VOLUME 6.9 fl (7.5-11.1); MONO % 10.6 % (3.8-10.2); NEUT % 51.8 % (42.8-82.8); PLATELET COUNT 345 10^3/uL (134-434); RBC 4.58 M/mm3 (3.60-5.2); RDW 13.8 % (11.6-15.6); VENOUS O2 SATURATION 93.4 % (70-80); VENOUS PH 7.476 (7.310-7.410); WHITE BLOOD COUNT 8.8 K/mm3 (4.0-10.0)
[2022-10-01 23:05] LABS: INR 1.12 (0.83-1.09); PROTHROMBIN TIME (PATIENT) 12.9 SEC (9.7-13.0)
[2022-10-01 23:08] LABS: ACTIVATED PTT 28.6 SECONDS (25.2-36.5)
[2022-10-01 23:17] LABS: ALBUMIN 3.6 g/dl (3.4-5.0)
[2022-10-01 23:18] LABS: BLOOD UREA NITROGEN 22.5 mg/dL (7-18)
[2022-10-01 23:20] LABS: CREATININE 0.8 mg/dL (0.55-1.3)
[2022-10-01 23:21] LABS: BILIRUBIN,TOTAL 0.4 mg/dL (0.2-1); TOT PROT 7.3 g/dl (6.4-8.2)
[2022-10-02] MEDS ORDERED: CEFTRIAXONE 1,000 MG in DEXTROSE 5%-WATER - 50 ML IVPB ONE (00:18)
[2022-10-02] MEDS ORDERED: AZITHROMYCIN IVPB 500 MG in DEXTROSE 5%-WATER - 250 ML IVPB ONE (00:18)
[2022-10-02] MEDS: ALBUTEROL SO4 2.5/IPRATROPIUM 0.5 INH SOL 3 ML VIAL.NEB. NEB SCH ×2 (00:24→07:56)
[2022-10-02] MEDS ORDERED: ACETAMINOPHEN 1000 MG/100 ML BAG IVPB ONE ×2 (00:36→14:00)
[2022-10-02] MEDS ORDERED: MECLIZINE HCL 25 MG TABLET (FP) PO ONE (00:37)
[2022-10-02] MEDS ORDERED: ACETAMINOPHEN INJECTION 100 ML IVPB ONE ×2 (00:38→15:25)
[2022-10-02] MEDS ORDERED: MECLIZINE HCL 25 MG TABLET (FP) ONE (00:38)
[2022-10-02] MEDS ORDERED: CEFTRIAXONE 1 GM/50 ML BAG ONE ×2 (00:39→01:01)
[2022-10-02] MEDS ORDERED: AZITHROMYCIN IVPB 500 MG/250 ML BAG IVPB ONE (00:39)
[2022-10-02] MEDS ORDERED: ALBUTEROL SO4 2.5/IPRATROPIUM 0.5 INH SOL 3 ML VIAL.NEB. NEB PRN (08:50)
[2022-10-02] MEDS ORDERED: CEFTRIAXONE 1 GM in DEXTROSE 5%-WATER - 50 ML IVPB SCH ×2 (10:00→22:00)
[2022-10-02] MEDS ORDERED: AZITHROMYCIN IVPB 250 MG in DEXTROSE 5%-WATER - 250 ML IVPB SCH ×2 (10:00→22:00)
[2022-10-02] MEDS ORDERED: ALPRAZolam 0.25 MG TABLET ONE (10:46)
[2022-10-02] MEDS: ALPRAZolam 0.25 MG TABLET PO PRN ×2 (10:47→22:05)
[2022-10-02] MEDS ORDERED: ENOXAPARIN NA (PORCINE) 40 MG/0.4 ML DISP.SYRIN SQ ONE (10:52)
[2022-10-02] MEDS ORDERED: methylPREDNISolone NA SUCC 40 MG/1 ML VIAL ONE (10:52)
[2022-10-02] MEDS: DEXTROSE 5%-0.45% SALINE 1,000 ML IV SCH (10:54)
[2022-10-02] MEDS: ENOXAPARIN NA (PORCINE) 40 MG/0.4 ML DISP.SYRIN SQ SCH (10:55)
[2022-10-02] MEDS: methylPREDNISolone NA SUCC 40 MG/1 ML VIAL IVPUSH SCH ×2 (10:55→17:13)
[2022-10-02] MEDS ORDERED: GABAPENTIN 300 MG CAPSULE ONE (15:25)
[2022-10-02] MEDS: GABAPENTIN 300 MG CAPSULE PO SCH ×2 (15:27→22:06)
[2022-10-02 16:28] VITALS: BMI 40.9
[2022-10-02] MEDS ORDERED: risperiDONE 2 MG TABLET PO SCH (22:00)
[2022-10-02] MEDS ORDERED: PARoxetine HCL 10 MG TABLET PO SCH (22:00)
[2022-10-03] MEDS: risperiDONE 1 MG TABLET PO SCH ×2 (00:59→21:58)
[2022-10-03] MEDS: GABAPENTIN 300 MG CAPSULE PO SCH ×3 (05:34→21:58)
[2022-10-03] MEDS: DEXTROSE 5%-0.45% SALINE 1,000 ML IV SCH (09:15)
[2022-10-03] MEDS: ENOXAPARIN NA (PORCINE) 40 MG/0.4 ML DISP.SYRIN SQ SCH (09:15)
[2022-10-03] MEDS: ANASTROZOLE 1 MG TABLET PO SCH (09:16)
[2022-10-03 10:18] LABS: BASO % 0.1 % (0-2.0); HEMATOCRIT 41.3 % (32.4-45.2); HEMOGLOBIN 13.6 GM/dL (10.7-15.3); LYMPH % 17.4 % (8-40); MCHC 32.8 g/dl (32.0-36.0); MEAN CELL VOLUME 94.6 fl (80-96); MEAN PLT VOLUME 6.8 fl (7.5-11.1); MONO % 10.5 % (3.8-10.2); PLATELET COUNT 337 10^3/uL (134-434); RBC 4.37 M/mm3 (3.60-5.2); RDW 13.7 % (11.6-15.6); WHITE BLOOD COUNT 13.5 K/mm3 (4.0-10.0)
[2022-10-03 10:39] LABS: CALCIUM 9.4 mg/dL (8.5-10.1)
[2022-10-03 10:40] LABS: ALBUMIN 3.4 g/dl (3.4-5.0); BLOOD UREA NITROGEN 12.5 mg/dL (7-18)
[2022-10-03 10:43] LABS: CREATININE 0.6 mg/dL (0.55-1.3)
[2022-10-03 10:44] LABS: BILIRUBIN,TOTAL 0.2 mg/dL (0.2-1)
[2022-10-03] MEDS ORDERED: CEFTRIAXONE 1 GM in DEXTROSE 5%-WATER - 50 ML IVPB SCH (11:00)
[2022-10-03] MEDS ORDERED: AZITHROMYCIN IVPB 500 MG/250 ML BAG IVPB SCH (11:00)
[2022-10-03] MEDS: BENZTROPINE MESYLATE 1 MG TABLET PO SCH (12:22)
[2022-10-03] MEDS: PAROXETINE HCL 20 MG, PAROXETINE HCL 10 MG PO SCH (21:58)
[2022-10-03] MEDS ORDERED: PARoxetine HCL 30 MG TABLET PO SCH (22:00)
[2022-10-04] MEDS: ACETAMINOPHEN 325 MG TABLET (FP) PO PRN ×2 (01:04→21:16)
[2022-10-04] MEDS: GABAPENTIN 300 MG CAPSULE PO SCH ×3 (05:58→21:16)
[2022-10-04 09:28] LABS: BASO % 0.8 % (0-2.0); EOS % 1.8 % (0-4.5); HEMATOCRIT 43.4 % (32.4-45.2); HEMOGLOBIN 14.1 GM/dL (10.7-15.3); LYMPH % 44.4 % (8-40); MCH 31.2 pg (25.7-33.7); MCHC 32.6 g/dl (32.0-36.0); MEAN CELL VOLUME 95.7 fl (80-96); MEAN PLT VOLUME 6.8 fl (7.5-11.1); MONO % 9.9 % (3.8-10.2); NEUT % 43.1 % (42.8-82.8); PLATELET COUNT 321 10^3/uL (134-434); RBC 4.53 M/mm3 (3.60-5.2); RDW 13.7 % (11.6-15.6); WHITE BLOOD COUNT 7.7 K/mm3 (4.0-10.0)
[2022-10-04] MEDS: ENOXAPARIN NA (PORCINE) 40 MG/0.4 ML DISP.SYRIN SQ SCH (09:58)
[2022-10-04] MEDS: ANASTROZOLE 1 MG TABLET PO SCH (09:58)
[2022-10-04] MEDS: BENZTROPINE MESYLATE 1 MG TABLET PO SCH (09:59)
[2022-10-04] MEDS: DEXTROSE 5%-0.45% SALINE 1,000 ML IV SCH (09:59)
[2022-10-04 10:30] LABS: ALBUMIN 3.2 g/dl (3.4-5.0); BLOOD UREA NITROGEN 13.5 mg/dL (7-18); CALCIUM 9.1 mg/dL (8.5-10.1)
[2022-10-04 10:33] LABS: CREATININE 0.7 mg/dL (0.55-1.3)
[2022-10-04 10:35] LABS: BILIRUBIN,TOTAL 0.2 mg/dL (0.2-1); TOT PROT 6.4 g/dl (6.4-8.2)
[2022-10-04] MEDS: CELECOXIB 200 MG CAPSULE PO SCH (21:16)
[2022-10-04] MEDS: risperiDONE 1 MG TABLET PO SCH (21:16)
[2022-10-04] MEDS: PAROXETINE HCL 20 MG, PAROXETINE HCL 10 MG PO SCH (21:16)
[2022-10-04] MEDS: ALPRAZolam 0.25 MG TABLET PO PRN (21:19)
[2022-10-05] MEDS: GABAPENTIN 300 MG CAPSULE PO SCH ×3 (05:02→21:41)
[2022-10-05] MEDS: ACETAMINOPHEN 325 MG TABLET (FP) PO PRN ×2 (05:02→16:40)
[2022-10-05 06:10] VITALS: RESP 18
[2022-10-05 09:01] LABS: BASO % 0.7 % (0-2.0); EOS % 4.1 % (0-4.5); HEMATOCRIT 41.2 % (32.4-45.2); HEMOGLOBIN 13.6 GM/dL (10.7-15.3); LYMPH % 41.3 % (8-40); MCH 31.2 pg (25.7-33.7); MEAN CELL VOLUME 94.6 fl (80-96); MEAN PLT VOLUME 6.6 fl (7.5-11.1); MONO % 10.9 % (3.8-10.2); PLATELET COUNT 324 10^3/uL (134-434); RBC 4.35 M/mm3 (3.60-5.2); RDW 13.5 % (11.6-15.6); WHITE BLOOD COUNT 6.8 K/mm3 (4.0-10.0)
[2022-10-05 09:30] LABS: CALCIUM 8.7 mg/dL (8.5-10.1)
[2022-10-05 09:33] LABS: CREATININE 0.8 mg/dL (0.55-1.3)
[2022-10-05 09:35] LABS: BILIRUBIN,TOTAL 0.5 mg/dL (0.2-1)
[2022-10-05] MEDS: ANASTROZOLE 1 MG TABLET PO SCH (11:29)
[2022-10-05] MEDS: ENOXAPARIN NA (PORCINE) 40 MG/0.4 ML DISP.SYRIN SQ SCH (11:31)
[2022-10-05] MEDS: CELECOXIB 200 MG CAPSULE PO SCH ×2 (12:59→21:41)
[2022-10-05] MEDS: BENZTROPINE MESYLATE 1 MG TABLET PO SCH (12:59)
[2022-10-05] MEDS: PAROXETINE HCL 20 MG, PAROXETINE HCL 10 MG PO SCH (21:41)
[2022-10-05] MEDS: risperiDONE 1 MG TABLET PO SCH (22:42)
[2022-10-06] MEDS: GABAPENTIN 300 MG CAPSULE PO SCH ×2 (06:09→13:32)
[2022-10-06] MEDS: ENOXAPARIN NA (PORCINE) 40 MG/0.4 ML DISP.SYRIN SQ SCH (09:37)
[2022-10-06] MEDS: CELECOXIB 200 MG CAPSULE PO SCH (09:38)
[2022-10-06] MEDS: BENZTROPINE MESYLATE 1 MG TABLET PO SCH (09:38)
[2022-10-06] MEDS: ANASTROZOLE 1 MG TABLET PO SCH (09:38)
[2022-10-06 14:23] VITALS: BP 122/75; PULSE 76; TEMP 97.7
== END 2022-10-06 16:18 | disposition home or self-care (01) ==
LOC: JER 20:50 → INTOOBSV 10-02 00:46 → JERBED 10-02 00:46 → J5S 10-02 15:45
PROVIDERS: ADMIT Internal Medicine; ATTEND Internal Medicine
PROC: 3E033NZ Introduction of Analgesics, Hypnotics, Sedatives into Peripheral Vein, Percutaneous Approach (ICD-10-PCS; principal; 2022-10-02)
PROC: 3E03329 Introduction of Other Anti-infective into Peripheral Vein, Percutaneous Approach (ICD-10-PCS; 2022-10-02)
PROC: 3E023GC Introduction of Other Therapeutic Substance into Muscle, Percutaneous Approach (ICD-10-PCS; 2022-10-02)
PROC: 3E033GC Introduction of Other Therapeutic Substance into Peripheral Vein, Percutaneous Approach (ICD-10-PCS; 2022-10-02)
DX: J18.9 Pneumonia, unspecified organism (principal); E66.01 Morbid (severe) obesity due to excess calories; Z68.41 Body mass index [BMI] 40.0-44.9, adult; Z85.3 Personal history of malignant neoplasm of breast; J45.909 Unspecified asthma, uncomplicated; G24.9 Dystonia, unspecified; F14.21 Cocaine dependence, in remission; Z72.0 Tobacco use; M54.2 Cervicalgia; J45.20 Mild intermittent asthma, uncomplicated; F41.8 Other specified anxiety disorders; R06.02 Shortness of breath
CPT/HCPCS: 0241U-QW; 36415; 70450-TC; 70498-TC; 71045-TC-FY; 71250-TC; 72125-TC; 80053; 82803; 84484; 85025; 85610; 85730; 87040; 87076; 87186; 87899; 93005; 93010; 96365; 96366; 96367; 96368; 96372; 96375; 96376; 99285-25; G0378; J1100; J2794; Q9967

== ENCOUNTER 2023-09-12 17:03 | Emergency (ER) | payer OTHER ==
[2023-09-12 17:11] VITALS: BP 142/79; PULSE 77; RESP 18; TEMP 98.7; BMI 33.9
[2023-09-12] MEDS ORDERED: AMOX TR/POT CLAV 500MG/125MG TABLETS (FP) PO ONE (17:51)
[2023-09-12] MEDS ORDERED: AMOXICILLIN 500 MG CAPSULE (FP) PO ONE (17:51)
[2023-09-12] MEDS ORDERED: AMOX TR/POT CLAV 500MG/125MG TABLETS (FP) ONE (17:57)
[2023-09-12] MEDS ORDERED: AMOXICILLIN 500 MG CAPSULE (FP) ONE (17:58)
== END 2023-09-12 18:13 | disposition home or self-care (01) ==
LOC: JERFT 17:03
DX: R51.9 Headache, unspecified (principal); R09.81 Nasal congestion; R05.9 Cough, unspecified; Z20.822 Contact with and (suspected) exposure to COVID-19
CPT/HCPCS: 0241U-QW; 99283-25

== ENCOUNTER 2024-01-11 07:53 | Emergency (ER) | payer OTHER ==
[2024-01-11 08:28] VITALS: RESP 18; TEMP 98; BMI 35.2
[2024-01-11 09:56] LABS: BASO % 0.6 % (0-2.0); EOS % 3.7 % (0-4.5); HEMATOCRIT 42.8 % (32.4-45.2); HEMOGLOBIN 14.2 GM/dL (10.7-15.3); LYMPH % 34.3 % (8-40); MCH 31.4 pg (25.7-33.7); MCHC 33.1 g/dl (32.0-36.0); MEAN CELL VOLUME 94.8 fl (80-96); MEAN PLT VOLUME 6.8 fl (7.5-11.1); NEUT % 52.4 % (42.8-82.8); PLATELET COUNT 372 10^3/uL (134-434); RBC 4.51 M/mm3 (3.60-5.2); RDW 13.6 % (11.6-15.6); WHITE BLOOD COUNT 6.6 K/mm3 (4.0-10.0)
[2024-01-11 10:15] LABS: POTASSIUM 4.4 mmol/L (3.5-5.1)
[2024-01-11 10:22] LABS: CALCIUM 9.6 mg/dL (8.5-10.1)
[2024-01-11 10:23] LABS: ALBUMIN 3.4 g/dl (3.4-5.0); BLOOD UREA NITROGEN 14.8 mg/dL (7-18)
[2024-01-11 10:26] LABS: CREATININE 0.6 mg/dL (0.55-1.3)
[2024-01-11 10:27] LABS: BILIRUBIN,TOTAL 0.5 mg/dL (0.2-1); TOT PROT 7.1 g/dl (6.4-8.2)
[2024-01-11] MEDS ORDERED: clonazePAM 0.25 MG ODT TABLETS SL ONE (10:28)
[2024-01-11] MEDS: clonazePAM 0.25 MG ODT TABLETS SL ONE (10:32)
[2024-01-11] MEDS: ACETAMINOPHEN 500 MG TABLET (FP) PO ONE (11:11)
[2024-01-11 11:12] VITALS: BP 146/83; PULSE 82
== END 2024-01-11 11:12 | disposition home or self-care (01) ==
LOC: JER 07:53
DX: R55 Syncope and collapse (principal); R51.9 Headache, unspecified; G89.29 Other chronic pain; R42 Dizziness and giddiness
CPT/HCPCS: 36415; 70450-TC; 80053; 82962; 84484; 85025; 93005; 93010; 99285-25